=== PATIENT | male | born 1955 | race African-American/Black ===

== ENCOUNTER 2017-02-09 19:41 | Inpatient (IN) | payer OTHER ==
[2017-02-09 20:54] VITALS: BMI 25.4
--- NOTE | 2017-02-09 21:26 | HP ---
CIWA Score - CIWA Score Nausea/Vomitin Muscle Tremors: 4-Moderate,w/Arms Extend Anxiety: 4-Mod. Anxious/Guarded Agitation: 4-Moderately Restless Paroxysmal Sweats: 2 Orientation: 0-Oriented Tacttile Disturbances: 0-None Auditory Disturbances: 0-None Visual Disturbances: 0-None Headache: 2-Mild CIWA-Ar Total Score: 18 Admission ROS BHS - HPI Chief Complaint: WITHDRAWAL SX Allergies/Adverse Reactions: Allergies Allergy/AdvReac Type Severity Reaction Status Date / Time Iodine and Iodide Containing Allergy Verified 02/09/17 22:18 Produc shrimp Allergy Verified 02/09/17 22:18 History of Present Illness: 61 YEARS OLD MALE WITH LONG HISTORY OF ALCOHOL NICOTINE DEPENDENCE HAS HYPERTENSION AND GERD AND DEPRESSION, RECENT RAPID WEIGHT LOSS DRY HEAT IS ADMITTED TO DETOX Exam Limitations: No Limitations - Ebola screening Have you traveled outside of the country in the last 21 days: No Have you had contact with anyone from an Ebola affected area: No Have you been sick,other than usual withdrawal symptoms: No Do you have a fever: No - Review of Systems Constitutional: Chills, Loss of Appetite, Changes in sleep, Unintentional Wgt. Loss, Unexplained wgt Loss EENT: reports: No Symptoms Reported Respiratory: reports: SOB with Exertion, Productive cough Cardiac: reports: No Symptoms Reported GI: reports: Nausea, Poor Appetite, Poor Fluid Intake, Indigestion, Abdominal cramping : reports: Dysuria Musculoskeletal: reports: Joint Pain (LEFT SHOULDER), Muscle Pain (LEFT SHOULDER ) Integumentary: reports: No Symptoms Reported Neuro: reports: Tremors Endocrine: reports: No Symptoms Reported Hematology: reports: No Symptoms Reported Psychiatric: reports: Judgement Intact, Orientated x3, Depressed Other Systems: Reviewed and Negative Patient History - Patient Medical History Hx Anemia: No Hx Asthma: No Hx Chronic Obstructive Pulmonary Disease (COPD): No Hx Cancer: No Hx Cardiac Disorders: No Hx Congestive Heart Failure: No Hx Hypertension: Yes Hx Hypercholesterolemia: No Hx Pacemaker: No HX Cerebrovascular Accident: No Hx Seizures: No Hx Dementia: No Hx Diabetes: No Hx Gastrointestinal Disorders: Yes Hx Liver Disease: No Hx Genitourinary Disorders: No Hx Sexually Transmitted Disorders: No Hx Renal Disease (ESRD): No Hx Thyroid Disease: No Hx Human Immunodeficiency Virus (HIV): No Hx Hepatitis C: No Hx Depression: Yes Hx Suicide Attempt: No Hx Bipolar Disorder: No Hx Schizophrenia: No - Patient Surgical History Past Surgical History: No - PPD History Previous Implant?: Yes Documented Results: Negative w/o proof Implanted On Prior R Admission?: No PPD to be Administered?: Yes - Smoking Cessation Smoking history: Current every day smoker Have you smoked in the past 12 months: Yes Aproximately how many cigarettes per day: 4 Cigars Per Day: 0 Hx Chewing Tobacco Use: No Initiated information on smoking cessation: Yes 'Breaking Loose' booklet given: 02/09/17 - Substance & Tx. History Hx Alcohol Use: Yes Hx Substance Use: No Substance Use Type: Alcohol Hx Substance Use Treatment: No - Substances Abused Alcohol Route: Oral Frequency: Daily Amount used: [id number]+1/2 P[place]OLKA Age of first use: 16 Date of Last Use: 02/09/17 Family Disease History - Family Disease History Family Disease History: CA: Father () Admission Physical Exam BHS - Vital Signs Vital Signs: Vital Signs - 24 hr 02/09/17 20:52 Temperature 97.6 F Pulse Rate 119 H Respiratory 20 Rate Blood Pressure 160/90 - Physical General Appearance: Yes: Appropriately Dressed, Moderate Distress, Alcohol on Breath, Thin, Tremorous, Irritable, Sweating, Anxious HEENTM: Yes: Hearing grossly Normal, Normal ENT Inspection, Normocephalic, Normal Voice Respiratory: Yes: Chest Non-Tender, Lungs Clear, Normal Breath Sounds, No Respiratory Distress, No Accessory Muscle Use Neck: Yes: Supple, Trachea in good position Breast: Yes: Breasts Symetrical Cardiology: Yes: Regular Rhythm, S1, S2, Tachycardia Abdominal: Yes: Non Tender, Soft Genitourinary: Yes: Within Normal Limits Back: Yes: Normal Inspection Musculoskeletal: Yes: full range of Motion, Gait Steady, Joint Stiffness (LEFT SHOULDER), Muscle Pain Extremities: Yes: Normal Inspection, Normal Range of Motion, Non-Tender, Tremors Neurological: Yes: Fully Oriented, Alert, Motor Strength 5/5, Normal Response, Depressed Affect Integumentary: Yes: Warm Lymphatic: Yes: Within Normal Limits - Diagnostic (1) Alcohol dependence with uncomplicated withdrawal Current Visit: Yes Status: Acute (2) Hypertension Current Visit: Yes Status: Acute Qualifiers: Hypertension type: essential hypertension Qualified Code(s): I10 - Essential (primary) hypertension (3) Weight loss Current Visit: Yes Status: Acute (4) BPH (benign prostatic hyperplasia) Current Visit: Yes Status: Acute Qualifiers: Prostatic enlargement morphology: non-nodular Lower urinary tract symptom presence: symptoms absent Qualified Code(s): N40.0 - Benign prostatic hyperplasia without lower urinary tract symptoms (5) Nicotine dependence Current Visit: Yes Status: Acute Qualifiers: Nicotine product type: cigarettes Substance use status: in withdrawal Qualified Code(s): F17.213 - Nicotine dependence, cigarettes, with withdrawal (6) Depression (emotion) Current Visit: Yes Status: Acute Qualifiers: Depression Type: dysthymia Qualified Code(s): F34.1 - Dysthymic disorder Cleared for Admission S - Detox or Rehab [facility] Level of Care: Medically Managed Detox Regimen/Protocol: Librium [facility] Breath Alcohol Content Breath Alcohol Content: 0.062 Urine Drug Screen - Results Drug Screen Negative: Yes
[2017-02-09] MEDS ORDERED: NICOTINE 14 MG/24 HOURS TOPICAL PATCH TD PRN (21:40)
[2017-02-09] MEDS ORDERED: MAG HYDROX/AL HYDROX/SIMETH 30 ML UNIT-DOSE CUP PO PRN (21:40)
[2017-02-09] MEDS ORDERED: chlordiazePOXIDE HCL 25 MG CAPSULE PO PRN (21:40)
[2017-02-09] MEDS ORDERED: chlordiazePOXIDE HCL 25 MG CAPSULE PO ONE (21:40)
[2017-02-09] MEDS ORDERED: ACETAMINOPHEN 325 MG TABLET (FP) PO PRN (21:40)
[2017-02-09] MEDS ORDERED: MAGNESIUM HYDROX 2400MG/30ML ORAL SUSPENSION 30 ML CUP PO PRN (21:40)
[2017-02-09] MEDS ORDERED: guaiFENesin/D-METHORPHAN HB 10 ML UNIT-DOSE CUPS PO PRN (21:40)
[2017-02-09] MEDS ORDERED: MENTHOL/PHENOL 1 EACH UD MM PRN (21:40)
[2017-02-09] MEDS ORDERED: NICOTINE POLACRILEX 2 MG GUM BC PRN (21:40)
[2017-02-09] MEDS ORDERED: hydrOXYzine PAMOATE 50 MG CAPSULE (FP) PO PRN (21:40)
[2017-02-09] MEDS ORDERED: P-EPHED 60MG/TRIPROLIDI 2.5MG TABLET PO PRN (21:40)
[2017-02-09] MEDS ORDERED: LOPERAMIDE HCL 2 MG CAPSULE PO PRN (21:40)
[2017-02-09] MEDS ORDERED: MAGNESIUM CITRATE 300 ML BOTTLE PO PRN (21:40)
[2017-02-09] MEDS ORDERED: cloNIDine HCL 0.1 MG TABLET PO PRN (21:47)
[2017-02-09 23:39] LABS: URINE APPEARANCE CLEAR; URINE BILIRUBIN NEGATIVE (NEGATIVE); URINE BLOOD NEGATIVE (NEGATIVE); URINE COLOR YELLOW; URINE GLUCOSE (UA) NEGATIVE (NEGATIVE); URINE KETONE TRACE (NEGATIVE); URINE LEUK ESTERASE NEGATIVE (NEGATIVE); URINE NITRITE NEGATIVE (NEGATIVE); URINE PROTEIN NEGATIVE (NEGATIVE); URINE UROBILINOGEN NEGATIVE E.U./dl (0.2-1.0)
[2017-02-09] MEDS: RANITIDINE HCL 150 MG TABLET (FP) PO SCH (23:57)
[2017-02-09] MEDS: chlordiazePOXIDE HCL 25 MG CAPSULE PO SCH (23:58)
[2017-02-09] MEDS: amLODIPine BESYLATE 5 MG TABLET (FP) PO SCH (23:58)
[2017-02-09] MEDS: CYCLOBENZAPRINE HCL 10 MG TABLET (FP) PO SCH (23:58)
[2017-02-10] MEDS: METHYL SALICYLATE/MENTHOL OINT 30 GM TUBE TP SCH ×3 (00:06→22:16)
[2017-02-10] MEDS: THIAMINE HCL 100 MG TABLET (FP) PO SCH ×2 (00:07→22:16)
[2017-02-10] MEDS: CYCLOBENZAPRINE HCL 10 MG TABLET (FP) PO SCH (05:37)
[2017-02-10] MEDS: chlordiazePOXIDE HCL 25 MG CAPSULE PO SCH ×4 (05:37→22:16)
[2017-02-10 10:05] LABS: MCH 38.4 pg (25.7-33.7); MCHC 36.2 g/dl (32.0-35.9); MEAN PLT VOLUME 7.6 fl (7.5-11.1); PLATELET COUNT 168 K/MM3 (134-434); RDW 12.2 % (11.9-15.9); WHITE BLOOD COUNT 6.2 K/mm3 (4.0-10.0)
--- NOTE | 2017-02-10 10:05 | PN ---
S CIWA - CIWA Score Nausea/Vomitin-No Nausea/No Vomiting Muscle Tremors: 3 Anxiety: 3 Agitation: 4-Moderately Restless Paroxysmal Sweats: 3 Orientation: 0-Oriented Tacttile Disturbances: 0-None Auditory Disturbances: 0-None Visual Disturbances: 0-None Headache: 1-Very Mild CIWA-Ar Total Score: 14 BHS Progress Note (SOAP) Subjective: agitation anxiety sweats chills body aches left should pain Objective: 02/10/17 10:04 Vital Signs Temperature 97.2 F L 02/10/17 06:26 Pulse Rate 75 02/10/17 06:26 Respiratory Rate 18 02/10/17 06:26 Blood Pressure 121/74 02/10/17 06:26 O2 Sat by Pulse Oximetry (%) Laboratory Tests 02/09/17 23:00 Urine Color Yellow Urine Appearance Clear Urine pH 5.0 Ur Specific [place] 1.021 Urine Protein Negative Urine Glucose (UA) Negative Urine Ketones Trace H Urine Blood Negative Urine Nitrite Negative Urine Bilirubin Negative Urine Urobilinogen Negative Ur Leukocyte Esterase Negative labs pending awake/alert lying in bed no acute distress Assessment: 02/10/17 10:04 withdrawal sx Plan: continue detox increase fluids lidocaine patch
[2017-02-10 10:33] LABS: ALK PHOS 94 U/L (45-117); ANION GAP 13 (8-16); BILIRUBIN,TOTAL 1.6 mg/dL (0.2-1.0); CALCIUM 7.4 mg/dL (8.5-10.1); CO2 25 mmol/L (21-32); COCKROFT - GAULT 63; CREATININE 1.2 mg/dL (0.7-1.3); GLUCOSE,RANDOM 140 mg/dL (74-106); THYROID STIMULATING HORMONE 1.41 uIU/ml (0.358-3.74)
[2017-02-10] MEDS: TAMSULOSIN HCL 0.4 MG CAP.ER.24H (FP) PO SCH (10:36)
[2017-02-10] MEDS: RANITIDINE HCL 150 MG TABLET (FP) PO SCH ×2 (10:37→22:16)
[2017-02-10] MEDS: amLODIPine BESYLATE 5 MG TABLET (FP) PO SCH (10:38)
[2017-02-10] MEDS: LIDOCAINE 5% TOPICAL PATCH TP SCH (10:38)
[2017-02-10] MEDS: PRENATAL VITAMINS W/ FOLIC ACID TABLET (FP) PO SCH (10:39)
[2017-02-10 10:45] LABS: HIV 1 & 2 AB NEGATIVE; HIV 1 AGp24 NEGATIVE
--- NOTE | 2017-02-10 16:26 | EKG ---
Test Reason : Blood Pressure : / mmHG Vent. Rate : 102 BPM Atrial Rate : 102 BPM P-R Int : 126 ms QRS Dur : 076 ms QT Int : 328 ms P-R-T Axes : 068 -20 005 degrees QTc Int : 427 ms POOR DATA QUALITY, INTERPRETATION MAY BE ADVERSELY AFFECTED SINUS TACHYCARDIA OTHERWISE NORMAL ECG NO PREVIOUS ECGS AVAILABLE Confirmed by [place] RIOS MD ([id number]) on 02/10/2017 4:26:28 PM Referred By: Confirmed By:NY RIOS MD
--- NOTE | 2017-02-10 17:15 | CONSULT ---
[facility] Psychiatric Consult - Data Date of interview: 02/10/17 Admission source: [facility] Identifying data: First admission to [facility] for this 61 y/o AA male seeking detox treatment for alcohol dependence.Patient is single,a father of one, domiciled,unemployed and deprived of any means of income. Substance Abuse History: - Smoking Cessation. Smoking history: Current every day smoker. Have you smoked in the past 12 months: Yes. Aproximately how many cigarettes per day: 4. Cigars Per Day: 0. Hx Chewing Tobacco Use: No. Initiated information on smoking cessation: Yes. 'Breaking Loose' booklet given : 02/09/17. - Substance & Tx. History. Hx Alcohol Use: Yes. Hx Substance Use : No. Substance Use Type: Alcohol. Hx Substance Use Treatment: No. - Substances Abused. Alcohol. Route: Oral. Frequency: Daily. Amount used: [id number]+1/2 P[place] VOLKA. Age of first use: 16. Date of Last Use: 02/09/17. Confirmed by patient. Medical History: GERD,hypertension and BPH (benign prostatic hypertrophy). Psychiatric History: Patient denies. Physical/Sexual Abuse/Trauma History: Patient denies. Additional Comment: Drug Screen Negative: Yes . Noted. Mental Status Exam - Mental Status Exam Alert and Oriented to: Time, Place, Person Cognitive Function: Grossly Intact Patient Appearance: Well Groomed Mood: Withdrawn Affect: Constricted Patient Behavior: Sedated, Fatigued, Cooperative Speech Pattern: Delayed, Slurred Voice Loudness: Moderately Soft/Quiet Thought Process: Disorganized Thought Disorder: Not Present Hallucinations: Denies Suicidal Ideation: Denies Homicidal Ideation: Denies Insight/Judgement: Poor Sleep: Fair Muscle strength/Tone: Normal (no complaint of weakness) Gait/Station: Normal Psychiatric Findings - Problem List ([place] 1, 2,3) (1) Alcohol dependence with uncomplicated withdrawal Current Visit: Yes Status: Acute (2) Nicotine dependence Current Visit: Yes Status: Acute Qualifiers: Nicotine product type: cigarettes Substance use status: in withdrawal Qualified Code(s): F17.213 - Nicotine dependence, cigarettes, with withdrawal (3) BPH (benign prostatic hyperplasia) Current Visit: Yes Status: Chronic Qualifiers: Prostatic enlargement morphology: non-nodular Lower urinary tract symptom presence: symptoms absent Qualified Code(s): N40.0 - Benign prostatic hyperplasia without lower urinary tract symptoms (4) Hypertension Current Visit: Yes Status: Chronic Qualifiers: Hypertension type: essential hypertension Qualified Code(s): I10 - Essential (primary) hypertension (5) Weight loss Current Visit: Yes Status: Chronic - Initial Treatment Plan Initial Treatment Plan: Psychoeducation.Detoxification.Observation.
[2017-02-10] MEDS: diphenhydrAMINE HCL 50 MG CAPSULE PO PRN (22:16)
[2017-02-11] MEDS: chlordiazePOXIDE HCL 25 MG CAPSULE PO SCH ×3 (05:19→17:39)
[2017-02-11] MEDS: PRENATAL VITAMINS W/ FOLIC ACID TABLET (FP) PO SCH (10:07)
[2017-02-11] MEDS: RANITIDINE HCL 150 MG TABLET (FP) PO SCH ×2 (10:07→22:17)
[2017-02-11] MEDS: TAMSULOSIN HCL 0.4 MG CAP.ER.24H (FP) PO SCH (10:07)
[2017-02-11] MEDS: amLODIPine BESYLATE 5 MG TABLET (FP) PO SCH (10:07)
[2017-02-11] MEDS: LIDOCAINE 5% TOPICAL PATCH TP SCH (10:08)
[2017-02-11] MEDS: METHYL SALICYLATE/MENTHOL OINT 30 GM TUBE TP SCH ×2 (10:08→22:19)
--- NOTE | 2017-02-11 10:51 | PN ---
[facility] CIWA - CIWA Score Nausea/Vomitin-No Nausea/No Vomiting Muscle Tremors: 3 Anxiety: 3 Agitation: 3 Paroxysmal Sweats: 3 Orientation: 0-Oriented Tacttile Disturbances: 0-None Auditory Disturbances: 0-None Visual Disturbances: 0-None Headache: 0-None Present CIWA-Ar Total Score: 12 S Progress Note (SOAP) Subjective: chills sweats little shakes shoulder pain Objective: 02/11/17 10:48 Vital Signs Temperature 96.4 F L 02/11/17 10:09 Pulse Rate 80 02/11/17 10:09 Respiratory Rate 16 02/11/17 10:09 Blood Pressure 106/70 02/11/17 10:09 O2 Sat by Pulse Oximetry (%) Laboratory Tests 02/09/17 02/09/17 02/10/17 07:00 23:00 07:00 WBC 6.2 RBC 3.91 L Hgb 15.0 Hct 41.5 MCV 106.0 H MCHC 36.2 H RDW 12.2 Plt Count 168 MPV 7.6 RBC Morphology Appears normal Morphology Comment Slide scanned Sodium Potassium Chloride Carbon Dioxide Anion Gap BUN Creatinine Creat Clearance w eGFR Random Glucose Calcium Total Bilirubin AST ALT Alkaline Phosphatase Total Protein Albumin TSH Urine Color Yellow Urine Appearance Clear Urine pH 5.0 Ur Specific [place] 1.021 Urine Protein Negative Urine Glucose (UA) Negative Urine Ketones Trace H Urine Blood Negative Urine Nitrite Negative Urine Bilirubin Negative Urine Urobilinogen Negative Ur Leukocyte Esterase Negative RPR Titer Hepatitis C Antibody <0.1 HIV 1&2 Antibody Screen HIV P24 Antigen 02/10/17 02/10/17 02/10/17 07:00 07:00 07:00 WBC RBC Hgb Hct MCV MCHC RDW Plt Count MPV RBC Morphology Morphology Comment Sodium 134 L Potassium 4.1 Chloride 96 L Carbon Dioxide 25 Anion Gap 13 BUN TNP Creatinine 1.2 Creat Clearance w eGFR > 60 Random Glucose 140 H Calcium 7.4 L Total Bilirubin 1.6 H AST TNP ALT TNP Alkaline Phosphatase 94 Total Protein TNP Albumin 3.0 L TSH 1.41 Urine Color Urine Appearance Urine pH Ur Specific [place] Urine Protein Urine Glucose (UA) Urine Ketones Urine Blood Urine Nitrite Urine Bilirubin Urine Urobilinogen Ur Leukocyte Esterase RPR Titer Nonreactive Hepatitis C Antibody HIV 1&2 Antibody Screen Negative HIV P24 Antigen Negative chemistry was called regarding TNP result for BUN,AST,ALT; TNP means pt blood is too milky high lipase for accurate result, however to repeat labs and if same result pt will then follow up with PMD. awake/alert ambulating no acute distress Assessment: 02/11/17 11:01 withdrawal sx Plan: continue detox increase fluids repeat labs and follow up pending labs
[2017-02-11] MEDS: THIAMINE HCL 100 MG TABLET (FP) PO SCH (22:16)
[2017-02-11] MEDS: diphenhydrAMINE HCL 50 MG CAPSULE PO PRN (22:17)
[2017-02-11] MEDS: chlordiazePOXIDE 5 MG CAPSULE PO SCH (22:17)
[2017-02-12] MEDS: chlordiazePOXIDE 5 MG CAPSULE PO SCH ×3 (05:19→17:11)
[2017-02-12 10:43] LABS: SGOT/AST 64 U/L (15-37); SGPT/ALT 66 U/L (12-78)
[2017-02-12] MEDS: METHYL SALICYLATE/MENTHOL OINT 30 GM TUBE TP SCH ×2 (10:57→22:18)
[2017-02-12] MEDS: TAMSULOSIN HCL 0.4 MG CAP.ER.24H (FP) PO SCH (10:58)
[2017-02-12] MEDS: PRENATAL VITAMINS W/ FOLIC ACID TABLET (FP) PO SCH (10:59)
[2017-02-12] MEDS: amLODIPine BESYLATE 5 MG TABLET (FP) PO SCH (10:59)
[2017-02-12] MEDS: LIDOCAINE 5% TOPICAL PATCH TP SCH (10:59)
[2017-02-12] MEDS: RANITIDINE HCL 150 MG TABLET (FP) PO SCH ×2 (11:00→22:19)
--- NOTE | 2017-02-12 16:27 | PN ---
S Progress Note (SOAP) Subjective: Tremors, body aches, Sweating. Objective: PT. A & O X 2 (DISORIENTED ABOUT DAY / DATE). PT. OBSERVED AMBULATING ON UNIT. 02/12/17 16:25 Vital Signs Temperature 97.1 F L 02/12/17 14:31 Pulse Rate 92 H 02/12/17 14:31 Respiratory Rate 18 02/12/17 14:31 Blood Pressure 149/78 02/12/17 14:31 O2 Sat by Pulse Oximetry (%) Laboratory Last Values WBC 6.2 K/mm3 (4.0-10.0) 02/10/17 07:00 RBC 3.91 M/mm3 (4.00-5.60) L 02/10/17 07:00 Hgb 15.0 GM/dL (11.7-16.9) 02/10/17 07:00 Hct 41.5 % (35.4-49) 02/10/17 07:00 MCV 106.0 fl (80-96) H 02/10/17 07:00 MCHC 36.2 g/dl (32.0-35.9) H 02/10/17 07:00 RDW 12.2 % (11.9-15.9) 02/10/17 07:00 Plt Count 168 K/MM3 (134-434) 02/10/17 07:00 MPV 7.6 fl (7.5-11.1) 02/10/17 07:00 RBC Morphology Appears normal 02/10/17 07:00 Morphology Comment Slide scanned 02/10/17 07:00 Sodium 134 mmol/L (136-145) L 02/10/17 07:00 Potassium 4.1 mmol/L (3.5-5.1) 02/10/17 07:00 Chloride 96 mmol/L (98-107) L 02/10/17 07:00 Carbon Dioxide 25 mmol/L (21-32) 02/10/17 07:00 Anion Gap 13 (8-16) 02/10/17 07:00 BUN 11 mg/dL (7-18) 02/12/17 08:00 Creatinine 1.2 mg/dL (0.7-1.3) 02/10/17 07:00 Creat Clearance w eGFR > 60 (>60) 02/10/17 07:00 Random Glucose 140 mg/dL (74-106) H 02/10/17 07:00 Calcium 7.4 mg/dL (8.5-10.1) L 02/10/17 07:00 Total Bilirubin 1.6 mg/dL (0.2-1.0) H 02/10/17 07:00 AST 64 U/L (15-37) H 02/12/17 08:00 ALT 66 U/L (12-78) 02/12/17 08:00 Alkaline Phosphatase 94 U/L (45-117) 02/10/17 07:00 Total Protein TNP 02/10/17 07:00 Albumin 3.0 g/dl (3.4-5.0) L 02/10/17 07:00 TSH 1.41 uIU/ml (0.358-3.74) 02/10/17 07:00 Urine Color Yellow 02/09/17 23:00 Urine Appearance Clear 02/09/17 23:00 Urine pH 5.0 (5.0-8.0) 02/09/17 23:00 Ur Specific [place] 1.021 (1.001-1.035) 02/09/17 23:00 Urine Protein Negative (NEGATIVE) 02/09/17 23:00 Urine Glucose (UA) Negative (NEGATIVE) 02/09/17 23:00 Urine Ketones Trace (NEGATIVE) H 02/09/17 23:00 Urine Blood Negative (NEGATIVE) 02/09/17 23:00 Urine Nitrite Negative (NEGATIVE) 02/09/17 23:00 Urine Bilirubin Negative (NEGATIVE) 02/09/17 23:00 Urine Urobilinogen Negative E.U./dl (0.2-1.0) 02/09/17 23:00 Ur Leukocyte Esterase Negative (NEGATIVE) 02/09/17 23:00 RPR Titer Nonreactive (NONREACTIVE) 02/10/17 07:00 Hepatitis C Antibody <0.1 s/co ratio (0.0-0.9) 02/09/17 07:00 HIV 1&2 Antibody Screen Negative 02/10/17 07:00 HIV P24 Antigen Negative 02/10/17 07:00 LABS NOTED. Assessment: 02/12/17 16:27 WITHDRAWAL SYMPTOMS. Plan: CONTINUE DETOX. ADVISED PATIENT TO FOLLOW-UP WITH [facility] / REHAB MEDICAL PROVIDER AFTER DISCHARGE FROM DETOX FOR GENERAL MEDICAL ASSESSMENT AND FOR ABNORMAL ADMISSION LAB VALUES.
[2017-02-12] MEDS: chlordiazePOXIDE HCL 10 MG CAPSULE PO SCH (22:18)
[2017-02-12] MEDS: THIAMINE HCL 100 MG TABLET (FP) PO SCH (22:19)
[2017-02-12] MEDS: diphenhydrAMINE HCL 50 MG CAPSULE PO PRN (22:20)
[2017-02-13] MEDS: chlordiazePOXIDE HCL 10 MG CAPSULE PO SCH (05:31)
[2017-02-13 06:42] VITALS: BP 135/68; PULSE 70; TEMP 97.7
--- NOTE | 2017-02-13 13:21 | DS ---
[facility] Detox Discharge Summary Admission Date: 02/09/17 Discharge Date: 02/13/17 - History Present History: Alcohol Dependence Pertinent Past History: HTN GERD BPH - Physical Exam Results Vital Signs: Vital Signs Temperature 97.7 F 02/13/17 06:00 Pulse Rate 70 02/13/17 06:00 Respiratory Rate 18 02/13/17 06:00 Blood Pressure 135/68 02/13/17 06:00 O2 Sat by Pulse Oximetry (%) Pertinent Admission Physical Exam Findings: Withdrawal symptoms Laboratory Tests 02/09/17 02/09/17 02/10/17 07:00 23:00 07:00 WBC 6.2 RBC 3.91 L Hgb 15.0 Hct 41.5 MCV 106.0 H MCHC 36.2 H RDW 12.2 Plt Count 168 MPV 7.6 RBC Morphology Appears normal Morphology Comment Slide scanned Sodium Potassium Chloride Carbon Dioxide Anion Gap BUN Creatinine Creat Clearance w eGFR Random Glucose Calcium Total Bilirubin AST ALT Alkaline Phosphatase Total Protein Albumin TSH Urine Color Yellow Urine Appearance Clear Urine pH 5.0 Ur Specific [place] 1.021 Urine Protein Negative Urine Glucose (UA) Negative Urine Ketones Trace H Urine Blood Negative Urine Nitrite Negative Urine Bilirubin Negative Urine Urobilinogen Negative Ur Leukocyte Esterase Negative RPR Titer Hepatitis C Antibody <0.1 HIV 1&2 Antibody Screen HIV P24 Antigen 02/10/17 02/10/17 02/10/17 07:00 07:00 07:00 WBC RBC Hgb Hct MCV MCHC RDW Plt Count MPV RBC Morphology Morphology Comment Sodium 134 L Potassium 4.1 Chloride 96 L Carbon Dioxide 25 Anion Gap 13 BUN TNP Creatinine 1.2 Creat Clearance w eGFR > 60 Random Glucose 140 H Calcium 7.4 L Total Bilirubin 1.6 H AST TNP ALT TNP Alkaline Phosphatase 94 Total Protein TNP Albumin 3.0 L TSH 1.41 Urine Color Urine Appearance Urine pH Ur Specific [place] Urine Protein Urine Glucose (UA) Urine Ketones Urine Blood Urine Nitrite Urine Bilirubin Urine Urobilinogen Ur Leukocyte Esterase RPR Titer Nonreactive Hepatitis C Antibody HIV 1&2 Antibody Screen Negative HIV P24 Antigen Negative 02/12/17 08:00 WBC RBC Hgb Hct MCV MCHC RDW Plt Count MPV RBC Morphology Morphology Comment Sodium Potassium Chloride Carbon Dioxide Anion Gap BUN 11 Creatinine Creat Clearance w eGFR Random Glucose Calcium Total Bilirubin AST 64 H ALT 66 Alkaline Phosphatase Total Protein Albumin TSH Urine Color Urine Appearance Urine pH Ur Specific [place] Urine Protein Urine Glucose (UA) Urine Ketones Urine Blood Urine Nitrite Urine Bilirubin Urine Urobilinogen Ur Leukocyte Esterase RPR Titer Hepatitis C Antibody HIV 1&2 Antibody Screen HIV P24 Antigen Labs noted - Treatment Hospital Course: Detox Protocol Followed, Detoxed Safely, Responded well, Discharged Condition Good - Medication Discharge Medications: Ambulatory Orders Tamsulosin HCl [Flomax] 1 cap PO DAILY 02/09/17 - Diagnosis (1) Alcohol dependence with uncomplicated withdrawal Status: Acute (2) Depression (emotion) Status: Chronic Qualifiers: Depression Type: dysthymia Qualified Code(s): F34.1 - Dysthymic disorder (3) Nicotine dependence Status: Chronic Qualifiers: Nicotine product type: cigarettes Substance use status: in withdrawal Qualified Code(s): F17.213 - Nicotine dependence, cigarettes, with withdrawal (4) BPH (benign prostatic hyperplasia) Status: Chronic Qualifiers: Prostatic enlargement morphology: non-nodular Lower urinary tract symptom presence: symptoms absent Qualified Code(s): N40.0 - Benign prostatic hyperplasia without lower urinary tract symptoms (5) Hypertension Status: Chronic Qualifiers: Hypertension type: essential hypertension Qualified Code(s): I10 - Essential (primary) hypertension (6) GERD (gastroesophageal reflux disease) Status: Chronic - AMA Did Patient Leave Against Medical Advice: No
== END 2017-02-13 09:47 | disposition home or self-care (01) | DRG 775 ==
LOC: YASAS 19:41 → Y6N 22:28
PROVIDERS: ADMIT Internal Medicine Addiction Medicine; ATTEND Internal Medicine Addiction Medicine
PROC: HZ2ZZZZ Detoxification Services for Substance Abuse Treatment (ICD-10-PCS; principal; 2017-02-13)
DX: F10.230 Alcohol dependence with withdrawal, uncomplicated (principal); F17.213 Nicotine dependence, cigarettes, with withdrawal; F34.1 Dysthymic disorder; I10 Essential (primary) hypertension; K21.9 Gastro-esophageal reflux disease without esophagitis; N40.0 Benign prostatic hyperplasia without lower urinary tract symptoms; R63.4 Abnormal weight loss; Z68.25 Body mass index [BMI] 25.0-25.9, adult
CPT/HCPCS: 36415; 80053; 81003; 84443; 84450; 84460; 84520; 85027; 86593; 87389; 93005; 93010

== ENCOUNTER 2017-10-27 17:56 | Inpatient (IN) | payer OTHER ==
[2017-10-27 18:46] VITALS: BMI 25.0
--- NOTE | 2017-10-27 23:06 | HP ---
COWS - Scale Resting Pulse: 1= ND 81-100 Sweatin=Flushed/Facial Moisture Restless Observation: 1= Difficult to Sit Still Pupil Size: 1= Pupils >than Normal Bone or Joint Aches: 2= Severe Diffuse Aches Runny Nose/ Eye Tearin= None GI Upset > 30mins: 1= Stomach Cramp Tremor Observation: 4= Gross Tremor/Twitching Yawning Observation: 0= None Anxiety or Irritability: 4=Extreme Anxiety Goose Flesh Skin: 0=Smooth Skin COWS Score: 16 CIWA Score - CIWA Score Nausea/Vomitin-No Nausea/No Vomiting Muscle Tremors: 4-Moderate,w/Arms Extend Anxiety: 4-Mod. Anxious/Guarded Agitation: 4-Moderately Restless Paroxysmal Sweats: 2 Orientation: 0-Oriented Tacttile Disturbances: 0-None Auditory Disturbances: 0-None Visual Disturbances: 0-None Headache: 3-Moderate CIWA-Ar Total Score: 17 Admission ROS BHS - HPI Chief Complaint: Alcohol and cocaine withdrawal symptoms Allergies/Adverse Reactions: Allergies Allergy/AdvReac Type Severity Reaction Status Date / Time Iodine and Iodide Containing Allergy Severe Swelling Verified 10/27/17 21:54 Produc shrimp Allergy Severe Swelling Verified 10/27/17 21:54 History of Present Illness: 61 years old male with a long history of alcohol and cocaine dependence is admitted to detox. Patient has been in previous detox and reports a year of sobriety. He has medical history of HTN, GERD, BPH, nicotine dependence and depression. He denies suicidal ideation at this time. Exam Limitations: No Limitations - Ebola screening Have you traveled outside of the country in the last 21 days: No Have you had contact with anyone from an Ebola affected area: No Have you been sick,other than usual withdrawal symptoms: No Do you have a fever: No - Review of Systems Constitutional: Chills, Diaphoresis, Loss of Appetite, Malaise, Night Sweats, Changes in sleep, Weakness, Unexplained wgt Loss EENT: reports: Sinus Pressure, Other (use glasses for reading) Respiratory: reports: No Symptoms reported, Cough (whitish phlegm) Cardiac: reports: No Symptoms Reported GI: reports: Poor Appetite, Poor Fluid Intake, Abdominal cramping : reports: No Symptoms Reported Musculoskeletal: reports: Back Pain, Joint Pain, Muscle Pain, Muscle Weakness Integumentary: reports: Flushing Neuro: reports: Headache, Tingling, Tremors, Weakness Endocrine: reports: Unexplained Weight Loss Hematology: reports: No Symptoms Reported Psychiatric: reports: Orientated x3, Anxious, Depressed Other Systems: Reviewed and Negative Patient History - Patient Medical History Hx Anemia: No Hx Asthma: No Hx Chronic Obstructive Pulmonary Disease (COPD): No Hx Cancer: No Hx Cardiac Disorders: No Hx Congestive Heart Failure: No Hx Hypertension: Yes Hx Hypercholesterolemia: No Hx Pacemaker: No HX Cerebrovascular Accident: No Hx Seizures: No Hx Dementia: No Hx Diabetes: No Hx Gastrointestinal Disorders: Yes (GERD) Hx Liver Disease: No Hx Genitourinary Disorders: No Hx Sexually Transmitted Disorders: No Hx Renal Disease (ESRD): No Hx Thyroid Disease: No Hx Human Immunodeficiency Virus (HIV): No (Negative 2017) Hx Hepatitis C: No Hx Depression: Yes Hx Suicide Attempt: No (Denies suicidal ideation) Hx Bipolar Disorder: No Hx Schizophrenia: No - Patient Surgical History Past Surgical History: No Hx Neurologic Surgery: No Hx Cataract Extraction: No Hx Cardiac Surgery: No Hx Lung Surgery: No Hx Abdominal Surgery: No Hx Appendectomy: No Hx Cholecystectomy: No Hx Genitourinary Surgery: No Hx Orthopedic Surgery: No Anesthesia Reaction: No - PPD History Previous Implant?: Yes Documented Results: Negative w/proof Implanted On Prior [facility] Admission?: Yes Date: 02/11/17 PPD to be Administered?: No - Reproductive History Patient is a Female of Child Bearing Age (11 -55 yrs old): No (MALE) - Smoking Cessation Smoking history: Current every day smoker Have you smoked in the past 12 months: Yes Aproximately how many cigarettes per day: 5 Cigars Per Day: 0 Hx Chewing Tobacco Use: No Initiated information on smoking cessation: Yes 'Breaking Loose' booklet given: 10/27/17 - Substance & Tx. History Hx Alcohol Use: Yes Hx Substance Use: Yes Substance Use Type: Alcohol, Cocaine Hx Substance Use Treatment: Yes ([facility]) - Substances Abused Alcohol Route: Oral Frequency: Daily Amount used: 6 cans Age of first use: 15 Date of Last Use: 10/27/17 Cocaine Route: Smoking Frequency: 1-2 times per week Amount used: $50 Age of first use: 15 Date of Last Use: 10/27/17 Family Disease History - Family Disease History Family Disease History: [place]: Father (LUNG [place]-) Admission Physical Exam [facility] - Vital Signs Vital Signs: Vital Signs - 24 hr 10/27/17 18:43 Temperature 97.7 F Pulse Rate 87 Respiratory 18 Rate Blood Pressure 138/82 - Physical General Appearance: Yes: Moderate Distress, Alcohol on Breath, Tremorous, Irritable, Sweating, Anxious HEENTM: Yes: EOMI, Normal ENT Inspection, AMPARO Respiratory: Yes: Lungs Clear, Normal Breath Sounds, No Respiratory Distress Neck: Yes: No masses,lesions,Nodules, Supple, Trachea in good position Breast: Yes: Breast Exam Deferred Cardiology: Yes: Regular Rhythm, Regular Rate, S1, S2 Abdominal: Yes: Normal Bowel Sounds, Soft Genitourinary: Yes: Within Normal Limits Back: Yes: Within Normal Limits Extremities: Yes: Normal Inspection, Tremors Neurological: Yes: Alert, Normal Mood/Affect, Normal Response Integumentary: Yes: Dry Lymphatic: Yes: Within Normal Limits - Diagnostic (1) Alcohol dependence with uncomplicated withdrawal Current Visit: Yes Status: Chronic (2) BPH (benign prostatic hyperplasia) Current Visit: Yes Status: Chronic Qualifiers: Lower urinary tract symptom presence: symptoms absent (3) Depression (emotion) Current Visit: Yes Status: Chronic Qualifiers: Depression Type: dysthymia Qualified Code(s): F34.1 - Dysthymic disorder (4) GERD (gastroesophageal reflux disease) Current Visit: Yes Status: Chronic (5) Hypertension Current Visit: Yes Status: Chronic Qualifiers: Hypertension type: essential hypertension Qualified Code(s): I10 - Essential (primary) hypertension (6) Nicotine dependence Current Visit: Yes Status: Chronic Qualifiers: Nicotine product type: cigarettes Substance use status: in withdrawal Qualified Code(s): F17.213 - Nicotine dependence, cigarettes, with withdrawal (7) Cocaine dependence, uncomplicated Current Visit: Yes Status: Chronic Cleared for Admission [facility] - Detox or Rehab [facility] Level of Care: Medically Managed Detox Regimen/Protocol: Librium [facility] Breath Alcohol Content Breath Alcohol Content: 0.153 Urine Drug Screen - Results Drug Screen Negative: No Urine Drug Screen Results: FELIPE-Cocaine
[2017-10-27] MEDS ORDERED: IBUPROFEN 400 MG TABLET (FP) PO PRN (23:19)
[2017-10-27] MEDS ORDERED: chlordiazePOXIDE HCL 25 MG CAPSULE PO ONE (23:19)
[2017-10-27] MEDS ORDERED: ACETAMINOPHEN 325 MG TABLET (FP) PO PRN (23:19)
[2017-10-27] MEDS ORDERED: MAG HYDROX/AL HYDROX/SIMETH 30 ML UNIT-DOSE CUP PO PRN (23:19)
[2017-10-27] MEDS ORDERED: chlordiazePOXIDE HCL 25 MG CAPSULE PO PRN (23:19)
[2017-10-27] MEDS ORDERED: MENTHOL/PHENOL 1 EACH UD MM PRN (23:19)
[2017-10-27] MEDS ORDERED: MAGNESIUM HYDROX 2400MG/30ML ORAL SUSPENSION 30 ML CUP PO PRN (23:19)
[2017-10-27] MEDS ORDERED: NICOTINE POLACRILEX 2 MG GUM BC PRN (23:19)
[2017-10-27] MEDS ORDERED: P-EPHED 60MG/TRIPROLIDI 2.5MG TABLET PO PRN (23:19)
[2017-10-27] MEDS ORDERED: guaiFENesin/D-METHORPHAN HB 10 ML UNIT-DOSE CUPS PO PRN (23:19)
[2017-10-27] MEDS ORDERED: MAGNESIUM CITRATE 300 ML BOTTLE PO PRN (23:19)
[2017-10-27] MEDS ORDERED: LOPERAMIDE HCL 2 MG CAPSULE PO PRN (23:19)
[2017-10-28] MEDS ORDERED: chlordiazePOXIDE HCL 25 MG CAPSULE PO SCH ×2 (00:15→05:00)
[2017-10-28] MEDS: chlordiazePOXIDE HCL 25 MG CAPSULE PO SCH ×6 (00:29→22:43)
[2017-10-28 02:01] LABS: URINE APPEARANCE CLEAR; URINE BILIRUBIN NEGATIVE (NEGATIVE); URINE BLOOD NEGATIVE (NEGATIVE); URINE COLOR LTYELLOW; URINE GLUCOSE (UA) NEGATIVE (NEGATIVE); URINE KETONE NEGATIVE (NEGATIVE); URINE LEUK ESTERASE NEGATIVE (NEGATIVE); URINE NITRITE NEGATIVE (NEGATIVE); URINE PROTEIN NEGATIVE (NEGATIVE); URINE UROBILINOGEN NEGATIVE mg/dL (0.2-1.0)
[2017-10-28 10:02] LABS: MCH 34.5 pg (25.7-33.7); MCHC 33.3 g/dl (32.0-35.9); MEAN CELL VOLUME 103.5 fl (80-96); MEAN PLT VOLUME 7.9 fl (7.5-11.1); PLATELET COUNT 180 K/MM3 (134-434); RDW 11.4 % (11.9-15.9); WHITE BLOOD COUNT 4.7 K/mm3 (4.0-10.0)
[2017-10-28 10:22] LABS: ALBUMIN 3.1 g/dl (3.4-5.0); ALK PHOS 113 U/L (45-117); ANION GAP 8 (8-16); BILIRUBIN,TOTAL 0.5 mg/dL (0.2-1.0); CALCIUM 8.2 mg/dL (8.5-10.1); CO2 27 mmol/L (21-32); CREATININE 0.9 mg/dL (0.7-1.3); GLUCOSE,RANDOM 89 mg/dL (74-106); SGOT/AST 28 U/L (15-37); SGPT/ALT 25 U/L (12-78); TOT PROT 6.7 g/dl (6.4-8.2)
[2017-10-28] MEDS: TAMSULOSIN HCL 0.4 MG CAP.ER.24H (FP) PO SCH (10:31)
[2017-10-28] MEDS: PRENATAL VITAMINS W/ FOLIC ACID TABLET (FP) PO SCH (10:31)
[2017-10-28 11:06] LABS: URINE LEUK ESTERASE Negative (NEGATIVE)
[2017-10-28 11:42] LABS: HIV 1 & 2 AB NEGATIVE; HIV 1 AGp24 NEGATIVE
--- NOTE | 2017-10-28 12:01 | CONSULT ---
[facility] Psychiatric Consult - Data Date of interview: 10/28/17 Admission source: [facility] Identifying data: Pt. is a 61 year old male, single, father of one daughter, and currently unemployed. Pt. admitted to for alcohol and cocaine dependence. Substance Abuse History: Smoking Cessation. Smoking history: Current every day smoker. Have you smoked in the past 12 months: Yes. Aproximately how many cigarettes per day: 5. Cigars Per Day: 0. Hx Chewing Tobacco Use: No. Initiated information on smoking cessation: Yes. 'Breaking Loose' booklet given : 10/27/17. - Substance & Tx. History. Hx Alcohol Use: Yes. Hx Substance Use : Yes. Substance Use Type: Alcohol, Cocaine. Hx Substance Use Treatment: Yes ( [facility]). Alcohol Route: Oral Frequency: Daily. Amount used: 6 cans Age of first use: 15. Date of Last Use: 10/27/17. Cocaine: Route: Smoking Frequency: 1-2 times per week. Amount used: $50 Age of first use: 15. Date of Last Use: 10/27/17 Medical History: Hypertension, GERD Psychiatric History: Pt. denies. Physical/Sexual Abuse/Trauma History: Denies. Additional Comment: Urine Drug Screen Results: FELIPE-Cocaine Mental Status Exam - Mental Status Exam Alert and Oriented to: Time, Place, Person Cognitive Function: Grossly Intact Patient Appearance: Well Groomed Mood: Withdrawn Affect: Mood Congruent Patient Behavior: Sedated (Pt. sedated but able to answer questions.), Fatigued Speech Pattern: Delayed, Slurred Voice Loudness: Moderately Soft/Quiet Thought Process: Goal Oriented Thought Disorder: Not Present Hallucinations: Denies Suicidal Ideation: Denies Homicidal Ideation: Denies Insight/Judgement: Poor Sleep: Fair Appetite: Fair Muscle strength/Tone: Normal Gait/Station: Normal Psychiatric Findings - Problem List ([place] 1, 2,3) (1) Alcohol dependence with uncomplicated withdrawal Current Visit: Yes Status: Chronic (2) Cocaine dependence, uncomplicated Current Visit: Yes Status: Chronic (3) Nicotine dependence Current Visit: Yes Status: Chronic Qualifiers: Nicotine product type: cigarettes Substance use status: in withdrawal Qualified Code(s): F17.213 - Nicotine dependence, cigarettes, with withdrawal - Initial Treatment Plan Initial Treatment Plan: Psychoeducation provided. Detox in progress. Will continue to monitor.
--- NOTE | 2017-10-28 13:45 | PN ---
[facility] CIWA - CIWA Score Nausea/Vomitin-No Nausea/No Vomiting Muscle Tremors: None Anxiety: 4-Mod. Anxious/Guarded Agitation: 2 Paroxysmal Sweats: 3 Orientation: 0-Oriented Tacttile Disturbances: 3-Moderate Itch/Numb/Burn Auditory Disturbances: 2-Mild Harshness/Frighten Visual Disturbances: 3-Moderate Sensitivity Headache: 0-None Present CIWA-Ar Total Score: 17 S Progress Note (SOAP) Subjective: Interrupted Sleep, Sweating, Fatigue, Body Aches. Objective: PT. A & O X 3. NO ACUTE DISTRESS. PT. DENIES CHEST PAIN. 10/28/17 13:42 Vital Signs Temperature 98.2 F 10/28/17 09:40 Pulse Rate 80 10/28/17 09:40 Respiratory Rate 18 10/28/17 09:40 Blood Pressure 159/95 10/28/17 09:40 O2 Sat by Pulse Oximetry (%) Laboratory Tests 10/27/17 10/28/17 10/28/17 23:33 07:00 07:00 WBC 4.7 RBC 4.16 Hgb 14.3 Hct 43.0 MCV 103.5 H MCH 34.5 H D MCHC 33.3 RDW 11.4 L Plt Count 180 MPV 7.9 Sodium 140 Potassium 4.0 Chloride 105 Carbon Dioxide 27 Anion Gap 8 BUN 16 D Creatinine 0.9 D Creat Clearance w eGFR > 60 Random Glucose 89 D Calcium 8.2 L Total Bilirubin 0.5 D AST 28 D ALT 25 D Alkaline Phosphatase 113 D Total Protein 6.7 Albumin 3.1 L Urine Color Ltyellow Urine Appearance Clear Urine pH 5.0 Ur Specific [place] 1.012 Urine Protein Negative Urine Glucose (UA) Negative Urine Ketones Negative Urine Blood Negative Urine Nitrite Negative Urine Bilirubin Negative Urine Urobilinogen Negative Ur Leukocyte Esterase Negative RPR Titer HIV 1&2 Antibody Screen HIV P24 Antigen 10/28/17 10/28/17 07:00 09:00 WBC RBC Hgb Hct MCV MCH MCHC RDW Plt Count MPV Sodium Potassium Chloride Carbon Dioxide Anion Gap BUN Creatinine Creat Clearance w eGFR Random Glucose Calcium Total Bilirubin AST ALT Alkaline Phosphatase Total Protein Albumin Urine Color Urine Appearance Urine pH Ur Specific [place] Urine Protein Urine Glucose (UA) Urine Ketones Urine Blood Urine Nitrite Urine Bilirubin Urine Urobilinogen Ur Leukocyte Esterase RPR Titer Nonreactive HIV 1&2 Antibody Screen Negative HIV P24 Antigen Negative LABS NOTED. HCV AB RESULT PENDING. 10/28/17 13:44 Assessment: 10/28/17 13:43 WITHDRAWAL SYMPTOMS. Plan: CONTINUE DETOX. INCREASE DAILY PO FLUID INTAKE. ENCOURAGE AMBULATION.
--- NOTE | 2017-10-28 13:55 | EKG ---
Test Reason : Blood Pressure : / mmHG Vent. Rate : 068 BPM Atrial Rate : 068 BPM P-R Int : 132 ms QRS Dur : 082 ms QT Int : 402 ms P-R-T Axes : 072 -28 -34 degrees QTc Int : 427 ms NORMAL SINUS RHYTHM MODERATE VOLTAGE CRITERIA FOR LVH, MAY BE NORMAL VARIANT T WAVE ABNORMALITY, CONSIDER INFERIOR ISCHEMIA ABNORMAL ECG WHEN COMPARED WITH ECG OF 28-OCT-2017 01:37, NO SIGNIFICANT CHANGE WAS FOUND Confirmed by REUBEN DEMARCO MD ([id number]) on 10/28/2017 1:54:50 PM Referred By: Confirmed By:REUBEN DEMARCO MD
--- NOTE | 2017-10-28 13:57 | EKG ---
Test Reason : Blood Pressure : / mmHG Vent. Rate : 083 BPM Atrial Rate : 083 BPM P-R Int : 134 ms QRS Dur : 084 ms QT Int : 400 ms P-R-T Axes : 074 -10 -42 degrees QTc Int : 470 ms NORMAL SINUS RHYTHM T WAVE ABNORMALITY, CONSIDER INFERIOR ISCHEMIA PROLONGED QT ABNORMAL ECG WHEN COMPARED WITH ECG OF 09-FEB-2017 23:10, NO SIGNIFICANT CHANGE WAS FOUND Confirmed by REUBEN DEMARCO MD ([id number]) on 10/28/2017 1:57:40 PM Referred By: Confirmed By:REUBEN DEMARCO MD
--- NOTE | 2017-10-28 15:32 | PN ---
BHS Progress Note Note: Amlodipine, 5 mg PO Daily ordered for persistently elevated BP. Edgardo Arevalo [employer]IVER/GUIDE
[2017-10-28] MEDS: amLODIPine BESYLATE 5 MG TABLET (FP) PO SCH (17:46)
[2017-10-28] MEDS: THIAMINE HCL 100 MG TABLET (FP) PO SCH (22:43)
[2017-10-28] MEDS: diphenhydrAMINE HCL 50 MG CAPSULE PO PRN (22:44)
[2017-10-29] MEDS: chlordiazePOXIDE HCL 25 MG CAPSULE PO SCH ×3 (05:51→16:49)
[2017-10-29] MEDS: TAMSULOSIN HCL 0.4 MG CAP.ER.24H (FP) PO SCH (10:28)
[2017-10-29] MEDS: amLODIPine BESYLATE 5 MG TABLET (FP) PO SCH (10:28)
[2017-10-29] MEDS: PRENATAL VITAMINS W/ FOLIC ACID TABLET (FP) PO SCH (10:28)
--- NOTE | 2017-10-29 16:57 | PN ---
[facility] CIWA - CIWA Score Nausea/Vomitin-No Nausea/No Vomiting Muscle Tremors: 4-Moderate,w/Arms Extend Anxiety: 2 Agitation: 2 Paroxysmal Sweats: 3 Orientation: 0-Oriented Tacttile Disturbances: 2-Mild Itch/Numbness/Burn Auditory Disturbances: 0-None Visual Disturbances: 0-None Headache: 3-Moderate CIWA-Ar Total Score: 16 BHS COWS - Scale Resting Pulse: 0= [place] 80 or Below Sweatin= Chills/Flushing Restless Observation: 1= Difficult to Sit Still Pupil Size: 0= Normal to Room Light Bone or Joint Aches: 2= Severe Diffuse Aches Runny Nose/ Eye Tearin= None GI Upset > 30mins: 0= None Tremor Observation of Outstretched Hands: 2= Slight Tremor Visible Yawning Observation: 1= 1-2x During Session Anxiety or Irritability: 2=Irritable/Anxious Goose Flesh Skin: 3=Piloerection COWS Score: 12 S Progress Note (SOAP) Subjective: Tremors, Body Aches, H/A, Sweating, Fatigue. Objective: PT. A & O X 3. NO ACUTE DISTRESS. 10/29/17 16:55 Vital Signs Temperature 97.6 F 10/29/17 11:07 Pulse Rate 70 10/29/17 11:07 Respiratory Rate 18 10/29/17 11:07 Blood Pressure 122/79 10/29/17 11:07 O2 Sat by Pulse Oximetry (%) Laboratory Tests 10/27/17 10/27/17 10/28/17 07:00 23:33 07:00 WBC 4.7 RBC 4.16 Hgb 14.3 Hct 43.0 MCV 103.5 H MCH 34.5 H D MCHC 33.3 RDW 11.4 L Plt Count 180 MPV 7.9 Sodium Potassium Chloride Carbon Dioxide Anion Gap BUN Creatinine Creat Clearance w eGFR Random Glucose Calcium Total Bilirubin AST ALT Alkaline Phosphatase Total Protein Albumin Urine Color Ltyellow Urine Appearance Clear Urine pH 5.0 Ur Specific [place] 1.012 Urine Protein Negative Urine Glucose (UA) Negative Urine Ketones Negative Urine Blood Negative Urine Nitrite Negative Urine Bilirubin Negative Urine Urobilinogen Negative Ur Leukocyte Esterase Negative RPR Titer Hepatitis C Antibody <0.1 HIV 1&2 Antibody Screen HIV P24 Antigen 10/28/17 10/28/17 10/28/17 07:00 07:00 09:00 WBC RBC Hgb Hct MCV MCH MCHC RDW Plt Count MPV Sodium 140 Potassium 4.0 Chloride 105 Carbon Dioxide 27 Anion Gap 8 BUN 16 D Creatinine 0.9 D Creat Clearance w eGFR > 60 Random Glucose 89 D Calcium 8.2 L Total Bilirubin 0.5 D AST 28 D ALT 25 D Alkaline Phosphatase 113 D Total Protein 6.7 Albumin 3.1 L Urine Color Urine Appearance Urine pH Ur Specific [place] Urine Protein Urine Glucose (UA) Urine Ketones Urine Blood Urine Nitrite Urine Bilirubin Urine Urobilinogen Ur Leukocyte Esterase RPR Titer Nonreactive Hepatitis C Antibody HIV 1&2 Antibody Screen Negative HIV P24 Antigen Negative LABS NOTED. Assessment: 10/29/17 16:56 WITHDRAWAL SYMPTOMS. Plan: CONTINUE DETOX. INCREASE DAILY PO FLUID INTAKE.
[2017-10-29] MEDS: chlordiazePOXIDE 5 MG CAPSULE PO SCH (22:24)
[2017-10-29] MEDS: THIAMINE HCL 100 MG TABLET (FP) PO SCH (22:24)
[2017-10-29] MEDS: diphenhydrAMINE HCL 50 MG CAPSULE PO PRN (22:26)
[2017-10-30] MEDS: chlordiazePOXIDE 5 MG CAPSULE PO SCH ×3 (05:44→16:40)
[2017-10-30] MEDS: TAMSULOSIN HCL 0.4 MG CAP.ER.24H (FP) PO SCH (10:23)
[2017-10-30] MEDS: PRENATAL VITAMINS W/ FOLIC ACID TABLET (FP) PO SCH (10:23)
[2017-10-30] MEDS: amLODIPine BESYLATE 5 MG TABLET (FP) PO SCH (10:23)
--- NOTE | 2017-10-30 15:49 | PN ---
BHS Progress Note (SOAP) Subjective: Sweating, tremor, interrupted sleep Objective: 10/30/17 15:47 Last Vital Signs Temp Pulse Resp BP Pulse Ox 97.1 F L 70 18 134/85 10/30/17 14:29 10/30/17 14:29 10/30/17 14:29 10/30/17 14:29 Laboratory Tests 10/27/17 10/27/17 10/28/17 07:00 23:33 07:00 WBC 4.7 RBC 4.16 Hgb 14.3 Hct 43.0 MCV 103.5 H MCH 34.5 H D MCHC 33.3 RDW 11.4 L Plt Count 180 MPV 7.9 Sodium Potassium Chloride Carbon Dioxide Anion Gap BUN Creatinine Creat Clearance w eGFR Random Glucose Calcium Total Bilirubin AST ALT Alkaline Phosphatase Total Protein Albumin Urine Color Ltyellow Urine Appearance Clear Urine pH 5.0 Ur Specific [place] 1.012 Urine Protein Negative Urine Glucose (UA) Negative Urine Ketones Negative Urine Blood Negative Urine Nitrite Negative Urine Bilirubin Negative Urine Urobilinogen Negative Ur Leukocyte Esterase Negative RPR Titer Hepatitis C Antibody <0.1 HIV 1&2 Antibody Screen HIV P24 Antigen 10/28/17 10/28/17 10/28/17 07:00 07:00 09:00 WBC RBC Hgb Hct MCV MCH MCHC RDW Plt Count MPV Sodium 140 Potassium 4.0 Chloride 105 Carbon Dioxide 27 Anion Gap 8 BUN 16 D Creatinine 0.9 D Creat Clearance w eGFR > 60 Random Glucose 89 D Calcium 8.2 L Total Bilirubin 0.5 D AST 28 D ALT 25 D Alkaline Phosphatase 113 D Total Protein 6.7 Albumin 3.1 L Urine Color Urine Appearance Urine pH Ur Specific [place] Urine Protein Urine Glucose (UA) Urine Ketones Urine Blood Urine Nitrite Urine Bilirubin Urine Urobilinogen Ur Leukocyte Esterase RPR Titer Nonreactive Hepatitis C Antibody HIV 1&2 Antibody Screen Negative HIV P24 Antigen Negative Labs noted Assessment: 10/30/17 15:49 Withdrawal symptoms Plan: Continue detox
[2017-10-30] MEDS: chlordiazePOXIDE HCL 10 MG CAPSULE PO SCH (22:28)
[2017-10-30] MEDS: THIAMINE HCL 100 MG TABLET (FP) PO SCH (22:28)
[2017-10-31] MEDS: chlordiazePOXIDE HCL 10 MG CAPSULE PO SCH ×3 (05:57→17:43)
[2017-10-31] MEDS: amLODIPine BESYLATE 5 MG TABLET (FP) PO SCH (10:19)
[2017-10-31] MEDS: PRENATAL VITAMINS W/ FOLIC ACID TABLET (FP) PO SCH (10:19)
[2017-10-31] MEDS: TAMSULOSIN HCL 0.4 MG CAP.ER.24H (FP) PO SCH (11:15)
--- NOTE | 2017-10-31 16:28 | PN ---
BHS Progress Note (SOAP) Subjective: Tremor, chills, interrupted sleep Objective: 10/31/17 16:26 Last Vital Signs Temp Pulse Resp BP Pulse Ox 96.4 F L 80 18 122/75 10/31/17 14:12 10/31/17 14:12 10/31/17 14:12 10/31/17 14:12 Laboratory Tests 10/27/17 10/27/17 10/28/17 07:00 23:33 07:00 WBC 4.7 RBC 4.16 Hgb 14.3 Hct 43.0 MCV 103.5 H MCH 34.5 H D MCHC 33.3 RDW 11.4 L Plt Count 180 MPV 7.9 Sodium Potassium Chloride Carbon Dioxide Anion Gap BUN Creatinine Creat Clearance w eGFR Random Glucose Calcium Total Bilirubin AST ALT Alkaline Phosphatase Total Protein Albumin Urine Color Ltyellow Urine Appearance Clear Urine pH 5.0 Ur Specific [place] 1.012 Urine Protein Negative Urine Glucose (UA) Negative Urine Ketones Negative Urine Blood Negative Urine Nitrite Negative Urine Bilirubin Negative Urine Urobilinogen Negative Ur Leukocyte Esterase Negative RPR Titer Hepatitis C Antibody <0.1 HIV 1&2 Antibody Screen HIV P24 Antigen 10/28/17 10/28/17 10/28/17 07:00 07:00 09:00 WBC RBC Hgb Hct MCV MCH MCHC RDW Plt Count MPV Sodium 140 Potassium 4.0 Chloride 105 Carbon Dioxide 27 Anion Gap 8 BUN 16 D Creatinine 0.9 D Creat Clearance w eGFR > 60 Random Glucose 89 D Calcium 8.2 L Total Bilirubin 0.5 D AST 28 D ALT 25 D Alkaline Phosphatase 113 D Total Protein 6.7 Albumin 3.1 L Urine Color Urine Appearance Urine pH Ur Specific [place] Urine Protein Urine Glucose (UA) Urine Ketones Urine Blood Urine Nitrite Urine Bilirubin Urine Urobilinogen Ur Leukocyte Esterase RPR Titer Nonreactive Hepatitis C Antibody HIV 1&2 Antibody Screen Negative HIV P24 Antigen Negative Labs noted Assessment: 10/31/17 16:27 Withdrawal symptoms Plan: Continue detox Encouraged to drink lots of water for hydration Ambien 5mg PO qhs prn for insomnia
[2017-10-31] MEDS ORDERED: ZOLPIDEM TARTRATE 5 MG TABLET PO PRN (22:00)
[2017-10-31] MEDS: THIAMINE HCL 100 MG TABLET (FP) PO SCH (22:32)
[2017-11-01 06:32] VITALS: BP 124/72; PULSE 66; TEMP 96.3
--- NOTE | 2017-11-01 11:57 | DS ---
[facility] Detox Discharge Summary Admission Date: 10/27/17 Discharge Date: 11/01/17 - History Present History: Alcohol Dependence, Cocaine Dependence Additional Comments: PATIENT GOING HOME. PATIENT ADVISED TO CONSIDER LOCAL 12-STEP / AA/ NA OUTPATIENT SUPPORT GROUP MEETINGS FOR AFTERCARE. PATIENT WAS DISCHARGED FROM DETOX UNIT IN STABLE MEDICAL CONDITION. Pertinent Past History: Depression, Nicotine Dependence, HTN, BPH, GERD. - Physical Exam Results Vital Signs: Vital Signs Temperature 96.3 F L 11/01/17 06:32 Pulse Rate 66 11/01/17 06:32 Respiratory Rate 16 11/01/17 06:32 Blood Pressure 124/72 11/01/17 06:32 O2 Sat by Pulse Oximetry (%) Pertinent Admission Physical Exam Findings: WITHDRAWAL SYMPTOMS. Laboratory Tests 10/27/17 10/27/17 10/28/17 07:00 23:33 07:00 WBC 4.7 RBC 4.16 Hgb 14.3 Hct 43.0 MCV 103.5 H MCH 34.5 H D MCHC 33.3 RDW 11.4 L Plt Count 180 MPV 7.9 Sodium Potassium Chloride Carbon Dioxide Anion Gap BUN Creatinine Creat Clearance w eGFR Random Glucose Calcium Total Bilirubin AST ALT Alkaline Phosphatase Total Protein Albumin Urine Color Ltyellow Urine Appearance Clear Urine pH 5.0 Ur Specific [place] 1.012 Urine Protein Negative Urine Glucose (UA) Negative Urine Ketones Negative Urine Blood Negative Urine Nitrite Negative Urine Bilirubin Negative Urine Urobilinogen Negative Ur Leukocyte Esterase Negative RPR Titer Hepatitis C Antibody <0.1 HIV 1&2 Antibody Screen HIV P24 Antigen 10/28/17 10/28/17 10/28/17 07:00 07:00 09:00 WBC RBC Hgb Hct MCV MCH MCHC RDW Plt Count MPV Sodium 140 Potassium 4.0 Chloride 105 Carbon Dioxide 27 Anion Gap 8 BUN 16 D Creatinine 0.9 D Creat Clearance w eGFR > 60 Random Glucose 89 D Calcium 8.2 L Total Bilirubin 0.5 D AST 28 D ALT 25 D Alkaline Phosphatase 113 D Total Protein 6.7 Albumin 3.1 L Urine Color Urine Appearance Urine pH Ur Specific [place] Urine Protein Urine Glucose (UA) Urine Ketones Urine Blood Urine Nitrite Urine Bilirubin Urine Urobilinogen Ur Leukocyte Esterase RPR Titer Nonreactive Hepatitis C Antibody HIV 1&2 Antibody Screen Negative HIV P24 Antigen Negative LABS NOTED. - Treatment Hospital Course: Detox Protocol Followed, Detoxed Safely, Responded well, Discharged Condition Good Patient has Accepted a Rehab Referral to: PT GOING HOME, ADVISED TO CONSIDER LOCAL 12-STEP/NA/AA SUPPORT GROUPS. - Medication Discharge Medications: Ambulatory Orders Tamsulosin HCl [Flomax] 1 cap PO DAILY 02/09/17 - Diagnosis (1) Alcohol dependence with uncomplicated withdrawal Status: Acute (2) Cocaine dependence, uncomplicated Status: Chronic (3) Depression (emotion) Status: Chronic Qualifiers: Depression Type: dysthymia Qualified Code(s): F34.1 - Dysthymic disorder (4) GERD (gastroesophageal reflux disease) Status: Chronic Qualifiers: Esophagitis presence: esophagitis presence not specified Qualified Code(s) : K21.9 - Gastro-esophageal reflux disease without esophagitis (5) Hypertension Status: Chronic Qualifiers: Hypertension type: essential hypertension Qualified Code(s): I10 - Essential (primary) hypertension (6) Nicotine dependence Status: Chronic Qualifiers: Nicotine product type: cigarettes Substance use status: in withdrawal Qualified Code(s): F17.213 - Nicotine dependence, cigarettes, with withdrawal (7) BPH (benign prostatic hyperplasia) Status: Chronic - AMA Did Patient Leave Against Medical Advice: No
== END 2017-11-01 08:30 | disposition home or self-care (01) | DRG 774 ==
LOC: YASAS 17:56 → Y3N 21:53
PROVIDERS: ADMIT Internal Medicine; ATTEND Internal Medicine
PROC: HZ2ZZZZ Detoxification Services for Substance Abuse Treatment (ICD-10-PCS; principal; 2017-10-27)
DX: F10.230 Alcohol dependence with withdrawal, uncomplicated (principal); F14.20 Cocaine dependence, uncomplicated; F17.213 Nicotine dependence, cigarettes, with withdrawal; F34.1 Dysthymic disorder; I10 Essential (primary) hypertension; K21.9 Gastro-esophageal reflux disease without esophagitis; N40.0 Benign prostatic hyperplasia without lower urinary tract symptoms
CPT/HCPCS: 36415; 80053; 81003; 85027; 86593; 86803; 87389; 93005; 93010

== ENCOUNTER 2018-01-06 14:32 | Inpatient (IN) | payer OTHER ==
--- NOTE | 2018-01-06 11:52 | HP ---
[facility] Re[facility] Assess/Revision - Admission History Admitted to Rehab from: [facility] Date of Admission to Rehab: 01/06/2018 - Vital signs Vital Signs: NOTED; STABLE. - Findings Detox History & Physical reviewed: Yes Concur with findings: Yes Comments/Additional Findings: PATIENT'S MEDICAL / MEDICATION HISTORY REVIEWED PRIOR TO DISCHARGE FROM DETOX UNIT. PATIENT WAS DISCHARGED FROM DETOX UNIT TO BE TAKEN TO REHAB UNIT IN STABLE MEDICAL CONDITION. Inpatient Rehab Admission - Initial Determination Are CD services needed?: Yes Free of communicable disease: Yes Not in need of hospitalization: Yes - Rehab Admission Criteria Previous failed treatment: Yes Comorbidities: Yes Patient is meeting Inpatient Rehab admission criteria:: Yes
[~2018-01-06 14:32] MED LIST: ACETAMINOPHEN 325 MG TABLET (FP) PO PRN; IBUPROFEN 400 MG TABLET (FP) PO PRN; LOPERAMIDE HCL 2 MG CAPSULE PO PRN; MAG HYDROX/AL HYDROX/SIMETH 30 ML UNIT-DOSE CUP PO PRN; MAGNESIUM CITRATE 300 ML BOTTLE PO PRN; MAGNESIUM HYDROX 2400MG/30ML ORAL SUSPENSION 30 ML CUP PO PRN; MENTHOL/PHENOL 1 EACH UD MM PRN; NICOTINE POLACRILEX 2 MG GUM BUC PRN; P-EPHED 60MG/TRIPROLIDI 2.5MG TABLET PO PRN; guaiFENesin/D-METHORPHAN HB 10 ML UNIT-DOSE CUPS PO PRN
[2018-01-06] MEDS: SUVOREXANT 10 MG TABLET PO PRN (21:25)
[2018-01-06] MEDS: THIAMINE HCL 100 MG TABLET (FP) PO SCH (21:25)
[2018-01-07] MEDS: TAMSULOSIN HCL 0.4 MG CAP.ER.24H (FP) PO SCH (09:30)
[2018-01-07] MEDS: PRENATAL VITAMINS W/ FOLIC ACID TABLET (FP) PO SCH (09:54)
[2018-01-07] MEDS: NICOTINE 14 MG/24 HOURS TOPICAL PATCH TD SCH (09:54)
[2018-01-07] MEDS: SUVOREXANT 10 MG TABLET PO PRN (21:29)
[2018-01-07] MEDS: THIAMINE HCL 100 MG TABLET (FP) PO SCH (21:29)
[2018-01-08] MEDS: TAMSULOSIN HCL 0.4 MG CAP.ER.24H (FP) PO SCH (08:56)
[2018-01-08] MEDS: PRENATAL VITAMINS W/ FOLIC ACID TABLET (FP) PO SCH (09:56)
[2018-01-08] MEDS: NICOTINE 14 MG/24 HOURS TOPICAL PATCH TD SCH (09:57)
[2018-01-08] MEDS: THIAMINE HCL 100 MG TABLET (FP) PO SCH (21:10)
[2018-01-08] MEDS: SUVOREXANT 10 MG TABLET PO PRN (21:10)
--- NOTE | 2018-01-09 06:54 | HP ---
Psychiatrist Admission - Data Date of interview: 01/09/18 Admission source: 3N Identifying data: This is the first [facility] admission for this 62 years old single Black male, father of a 35 years old daughter, employed seasonally as a cook, domiciled Medical History: Significant for hypertension, GERD and BPH (benign prostatic hypertrophy). Smokes 5 cigarettes daily Psychiatric History: Denies history of previous psychiatric treatment Physical/Sexual Abuse/Trauma History: Denies history of emotional, physical or sexual abuse as well as DV relationship. No service Additional Comment: Reports history of multiple previous arrests including 3 felony convictions. Denies being on parole/probation at present Vital Signs: Vital Signs - 24 hr 01/09/18 01/09/18 00:30 03:30 Respiratory 18 18 Rate Allergies/Adverse Reactions: Allergies Allergy/AdvReac Type Severity Reaction Status Date / Time Iodine and Iodide Containing Allergy Severe Swelling Verified 01/06/18 14:50 Produc shrimp Allergy Severe Swelling Verified 01/06/18 14:50 Date of last physical exam: 01/03/18 Concur with the findings of this exam: Yes - Substance Abuse/Tx History Hx Alcohol Use: Yes Hx Substance Use: Yes Substance Use Type: Alcohol (Started drinking alcohol at age 15, consumes half a pint of vodka &a 6pk of beer daily. Last drank on 01/03/18), Cocaine (Started smoking crack cocaine at age 15, consumes $100 worth daily. Last smoked on ) Hx Substance Use Treatment: Yes (4-5 previous inpr detox & 1-2 inpt rehab) Mental Status Exam - Mental Status Exam Alert and Oriented to: Time, Place, Person Cognitive Function: Fair Patient Appearance: Well Groomed Mood: Depressed Affect: Appropriate Patient Behavior: Cooperative Speech Pattern: Clear Voice Loudness: Normal Thought Process: Intact, Goal Oriented Thought Disorder: Not Present Hallucinations: Denies Suicidal Ideation: Denies Homicidal Ideation: Denies Insight/Judgement: Fair Sleep: Poorly Appetite: Good Muscle strength/Tone: Normal Gait/Station: Normal Psychiatric Findings - Problem List ([place] 1, 2,3) (1) Alcohol dependence Current Visit: Yes Status: Acute (2) Cocaine dependence Current Visit: Yes Status: Acute (3) Nicotine dependence Current Visit: No Status: Acute Qualifiers: Nicotine product type: cigarettes Substance use status: in withdrawal Qualified Code(s): F17.213 - Nicotine dependence, cigarettes, with withdrawal (4) Substance-induced sleep disorder Current Visit: Yes Status: Acute (5) BPH (benign prostatic hyperplasia) Current Visit: No Status: Chronic (6) GERD (gastroesophageal reflux disease) Current Visit: No Status: Chronic Qualifiers: Esophagitis presence: esophagitis presence not specified Qualified Code(s) : K21.9 - Gastro-esophageal reflux disease without esophagitis (7) Hypertension Current Visit: No Status: Chronic Qualifiers: Hypertension type: essential hypertension Qualified Code(s): I10 - Essential (primary) hypertension - Initial Treatment Plan Initial Treatment Plan: 1) Start Belsomra 10 mg po HS prn for insomnisa. 2) Monitor progress
[2018-01-09] MEDS: TAMSULOSIN HCL 0.4 MG CAP.ER.24H (FP) PO SCH (09:30)
[2018-01-09] MEDS: PRENATAL VITAMINS W/ FOLIC ACID TABLET (FP) PO SCH (10:07)
[2018-01-09] MEDS: NICOTINE 14 MG/24 HOURS TOPICAL PATCH TD SCH (10:07)
[2018-01-09] MEDS: SUVOREXANT 10 MG TABLET PO PRN (21:31)
[2018-01-09] MEDS: THIAMINE HCL 100 MG TABLET (FP) PO SCH (21:31)
[2018-01-10] MEDS: TAMSULOSIN HCL 0.4 MG CAP.ER.24H (FP) PO SCH (07:33)
[2018-01-10] MEDS: NICOTINE 14 MG/24 HOURS TOPICAL PATCH TD SCH (10:28)
[2018-01-10] MEDS: PRENATAL VITAMINS W/ FOLIC ACID TABLET (FP) PO SCH (10:33)
[2018-01-10] MEDS: THIAMINE HCL 100 MG TABLET (FP) PO SCH (21:10)
[2018-01-10] MEDS: SUVOREXANT 10 MG TABLET PO PRN (21:12)
[2018-01-11] MEDS: TAMSULOSIN HCL 0.4 MG CAP.ER.24H (FP) PO SCH (09:30)
[2018-01-11] MEDS: PRENATAL VITAMINS W/ FOLIC ACID TABLET (FP) PO SCH (09:33)
[2018-01-11] MEDS: NICOTINE 14 MG/24 HOURS TOPICAL PATCH TD SCH (09:33)
[2018-01-11] MEDS: THIAMINE HCL 100 MG TABLET (FP) PO SCH (21:03)
[2018-01-11] MEDS: SUVOREXANT 10 MG TABLET PO PRN (21:03)
[2018-01-12 06:54] VITALS: BP 145/87; PULSE 73; TEMP 97.4
[2018-01-12] MEDS: PRENATAL VITAMINS W/ FOLIC ACID TABLET (FP) PO SCH (09:08)
[2018-01-12] MEDS: TAMSULOSIN HCL 0.4 MG CAP.ER.24H (FP) PO SCH (09:08)
[2018-01-12] MEDS: NICOTINE 14 MG/24 HOURS TOPICAL PATCH TD SCH (09:08)
--- NOTE | 2018-01-12 11:15 | PN ---
S Progress Note Note: Told by nursing staff about patient's decision to leave without completing this program. According to staff, he was determined to leave despite encouragement to stay and complete this program. He was stable on discharge.
== END 2018-01-12 09:28 | disposition left against medical advice (07) | DRG 770 ==
LOC: YASAS 14:32 → Y3W 14:34
PROVIDERS: ADMIT Psychiatry & Neurology Psychiatry; ATTEND Psychiatry & Neurology Psychiatry
PROC: HZ42ZZZ Group Counseling for Substance Abuse Treatment, Cognitive-Behavioral (ICD-10-PCS; principal; 2018-01-06)
DX: F10.20 Alcohol dependence, uncomplicated (principal); F14.20 Cocaine dependence, uncomplicated; F17.213 Nicotine dependence, cigarettes, with withdrawal; F19.282 Other psychoactive substance dependence with psychoactive substance-induced sleep disorder; I10 Essential (primary) hypertension; N40.0 Benign prostatic hyperplasia without lower urinary tract symptoms; K21.9 Gastro-esophageal reflux disease without esophagitis

== ENCOUNTER 2018-02-05 18:56 | Inpatient (IN) | payer OTHER ==
--- NOTE | 2018-02-05 20:42 | HP ---
CIWA Score - CIWA Score Nausea/Vomitin-Mild Nausea/No Vomiting Muscle Tremors: 4-Moderate,w/Arms Extend Anxiety: 4-Mod. Anxious/Guarded Agitation: 1-Slight > Activity Paroxysmal Sweats: 1-Minimal Palms Moist Orientation: 1-Uncertain about Date Tacttile Disturbances: 0-None Auditory Disturbances: 0-None Visual Disturbances: 0-None Headache: 3-Moderate CIWA-Ar Total Score: 15 Admission ROS S - HPI Chief Complaint: Alcohol withdrawal symptoms Allergies/Adverse Reactions: Allergies Allergy/AdvReac Type Severity Reaction Status Date / Time Iodine and Iodide Containing Allergy Severe Swelling Verified 02/05/18 22:42 Produc shrimp Allergy Severe Swelling Verified 02/05/18 22:42 History of Present Illness: 62 years old male with a long history of alcohol and crack cocaine dependence is seeking admission to detox. Patient has been in previous detox, last admitted to [facility] from 01/03/2018 - 01/12/2018 for detox and rehab but left prior to completing rehab. He reports insignificant period of sobriety. He has past medical history of HTN, GERD, BPH, nicotine dependence and depression. His only prescribed medication is Flomax for BPH. He denies suicide attempt and suicidal ideation at this time. Exam Limitations: No Limitations - Ebola screening Have you traveled outside of the country in the last 21 days: No Have you had contact with anyone from an Ebola affected area: No Have you been sick,other than usual withdrawal symptoms: No Do you have a fever: No - Review of Systems Constitutional: Chills, Loss of Appetite, Malaise, Night Sweats, Changes in sleep EENT: reports: Nose Congestion, Other (uses prescription glasses) Respiratory: reports: No Symptoms reported Cardiac: reports: No Symptoms Reported GI: reports: Nausea, Poor Fluid Intake, Abdominal cramping : reports: No Symptoms Reported Musculoskeletal: reports: Back Pain (lower), Muscle Pain Integumentary: reports: Dryness, Flushing Neuro: reports: Tingling, Tremors Endocrine: reports: No Symptoms Reported Hematology: reports: No Symptoms Reported Psychiatric: reports: Orientated x3, Anxious, Depressed Other Systems: Reviewed and Negative Patient History - Patient Medical History Hx Anemia: No Hx Asthma: No Hx Chronic Obstructive Pulmonary Disease (COPD): No Hx Cancer: No Hx Cardiac Disorders: No Hx Congestive Heart Failure: No Hx Hypertension: Yes (Not on medication) Hx Hypercholesterolemia: No Hx Pacemaker: No HX Cerebrovascular Accident: No Hx Seizures: No Hx Dementia: No Hx Diabetes: No Hx Gastrointestinal Disorders: Yes (GERD - Not on medication) Hx Liver Disease: No Hx Genitourinary Disorders: Yes (BPH - On FLOMAX) Hx Sexually Transmitted Disorders: No Hx Renal Disease (ESRD): No Hx Thyroid Disease: No Hx Human Immunodeficiency Virus (HIV): No (Negative 2017) Hx Hepatitis C: No Hx Depression: Yes (Not on medication) Hx Suicide Attempt: No (Denies suicidal ideation) Hx Bipolar Disorder: No Hx Schizophrenia: No - Patient Surgical History Past Surgical History: No Hx Neurologic Surgery: No Hx Cataract Extraction: No Hx Cardiac Surgery: No Hx Lung Surgery: No Hx Abdominal Surgery: No Hx Appendectomy: No Hx Cholecystectomy: No Hx Genitourinary Surgery: No Hx Orthopedic Surgery: No Anesthesia Reaction: No - PPD History Previous Implant?: Yes Documented Results: Negative w/proof Implanted On Prior R Admission?: Yes Date: 02/11/17 Results: 0 mm PPD to be Administered?: Yes - Reproductive History Patient is a Female of Child Bearing Age (11 -55 yrs old): No (MALE) - Smoking Cessation Smoking history: Current every day smoker Have you smoked in the past 12 months: Yes Aproximately how many cigarettes per day: 5 Cigars Per Day: 0 Hx Chewing Tobacco Use: No Initiated information on smoking cessation: Yes 'Breaking Loose' booklet given: 02/05/18 - Substances Abused Alcohol Route: Oral Frequency: Daily Amount used: 6 PACK BEER Age of first use: 15 Date of Last Use: 02/05/18 Family Disease History - Family Disease History Family Disease History: CA: Father (LUNG CA-) Admission Physical Exam [facility] - Physical General Appearance: Yes: Moderate Distress HEENTM: Yes: EOMI, Normal ENT Inspection, Normal Voice, AMPARO Respiratory: Yes: Lungs Clear, Normal Breath Sounds, No Respiratory Distress Neck: Yes: Supple Breast: Yes: Breast Exam Deferred Cardiology: Yes: Regular Rhythm, Regular Rate, S1, S2 Abdominal: Yes: Normal Bowel Sounds, Soft Genitourinary: Yes: Within Normal Limits Back: Yes: Normal Inspection Musculoskeletal: Yes: Back pain Extremities: Yes: Tremors Neurological: Yes: Alert, Normal Mood/Affect Integumentary: Yes: Dry Lymphatic: Yes: Within Normal Limits - Diagnostic (1) Alcohol dependence with uncomplicated withdrawal Current Visit: No Status: Chronic (2) Cocaine dependence, uncomplicated Current Visit: No Status: Chronic (3) Nicotine dependence Current Visit: No Status: Chronic Qualifiers: Nicotine product type: cigarettes Substance use status: in withdrawal Qualified Code(s): F17.213 - Nicotine dependence, cigarettes, with withdrawal (4) BPH (benign prostatic hyperplasia) Current Visit: No Status: Chronic (5) Depression (emotion) Current Visit: No Status: Chronic Qualifiers: Depression Type: dysthymia Qualified Code(s): F34.1 - Dysthymic disorder (6) GERD (gastroesophageal reflux disease) Current Visit: No Status: Chronic Qualifiers: Esophagitis presence: esophagitis presence not specified Qualified Code(s) : K21.9 - Gastro-esophageal reflux disease without esophagitis (7) Hypertension Current Visit: No Status: Chronic Qualifiers: Hypertension type: essential hypertension Qualified Code(s): I10 - Essential (primary) hypertension Cleared for Admission [facility] - Detox or Rehab S Level of Care: Medically Managed Detox Regimen/Protocol: Librium [facility] Breath Alcohol Content Breath Alcohol Content: 0.027 Vital Signs - Vital Signs Vital Signs Refused: No Temperature: 96.5 F Temperature Source: Oral Pulse Rate: 66 Respiratory Rate: 19 Blood Pressure: 151/85 BP Location: Left Arm Blood Pressure Position: Sitting - Height Height: 5 ft 5 in - Weight Weight: 153 lb Weight Measurement Method: Standing Scale Body Mass Index (BMI): 25.4 - Bowel Function Bowel Movement: No Urine Drug Screen - Test Device Lot Number: [id number] Expiration Date: 12/07/19 - Control Is Test Valid: Yes - Results Drug Screen Negative: No Urine Drug Screen Results: FELIPE-Cocaine, BZO-Benzodiazepines
[2018-02-05 21:00] VITALS: BMI 25.4
[2018-02-05] MEDS ORDERED: MAG HYDROX/AL HYDROX/SIMETH 30 ML UNIT-DOSE CUP PO PRN (21:14)
[2018-02-05] MEDS ORDERED: NICOTINE POLACRILEX 2 MG GUM BC PRN (21:14)
[2018-02-05] MEDS ORDERED: LOPERAMIDE HCL 2 MG CAPSULE PO PRN (21:14)
[2018-02-05] MEDS ORDERED: P-EPHED 60MG/TRIPROLIDI 2.5MG TABLET PO PRN (21:14)
[2018-02-05] MEDS ORDERED: IBUPROFEN 400 MG TABLET (FP) PO PRN (21:14)
[2018-02-05] MEDS ORDERED: MAGNESIUM HYDROX 2400MG/30ML ORAL SUSPENSION 30 ML CUP PO PRN (21:14)
[2018-02-05] MEDS ORDERED: guaiFENesin/D-METHORPHAN HB 10 ML UNIT-DOSE CUPS PO PRN (21:14)
[2018-02-05] MEDS ORDERED: MAGNESIUM CITRATE 300 ML BOTTLE PO PRN (21:14)
[2018-02-05] MEDS ORDERED: MENTHOL/PHENOL 1 EACH UD MM PRN (21:14)
[2018-02-05] MEDS ORDERED: chlordiazePOXIDE HCL 25 MG CAPSULE PO PRN (21:14)
[2018-02-05] MEDS ORDERED: ACETAMINOPHEN 325 MG TABLET (FP) PO PRN (21:14)
[2018-02-05] MEDS ORDERED: MELATONIN 5 MG TABLETS PO PRN (22:00)
[2018-02-05] MEDS: chlordiazePOXIDE HCL 25 MG CAPSULE PO SCH (23:30)
[2018-02-05] MEDS: THIAMINE HCL 100 MG TABLET (FP) PO SCH (23:30)
[2018-02-06] MEDS: chlordiazePOXIDE HCL 25 MG CAPSULE PO SCH ×4 (05:25→22:38)
[2018-02-06] MEDS: TAMSULOSIN HCL 0.4 MG CAP.ER.24H (FP) PO SCH (09:26)
[2018-02-06 09:57] LABS: HEMOGLOBIN 13.2 GM/dL (11.7-16.9); MCH 35.6 pg (25.7-33.7); MCHC 33.8 g/dl (32.0-35.9); MEAN CELL VOLUME 105.1 fl (80-96); MEAN PLT VOLUME 8.6 fl (7.5-11.1); PLATELET COUNT 140 K/MM3 (134-434); RBC 3.71 M/mm3 (4.00-5.60); RDW 11.6 % (11.9-15.9); WHITE BLOOD COUNT 4.8 K/mm3 (4.0-10.0)
[2018-02-06 09:58] LABS: URINE APPEARANCE CLEAR; URINE BILIRUBIN NEGATIVE (<2.0 mg/dL); URINE BLOOD NEGATIVE (NEGATIVE); URINE COLOR STRAW; URINE GLUCOSE (UA) NEGATIVE (NEGATIVE); URINE KETONE NEGATIVE (NEGATIVE); URINE LEUK ESTERASE NEGATIVE (NEGATIVE); URINE NITRITE NEGATIVE (NEGATIVE); URINE PROTEIN NEGATIVE (NEGATIVE); URINE UROBILINOGEN NEGATIVE mg/dL (0.2-1.0)
[2018-02-06] MEDS: NICOTINE 14 MG/24 HOURS TOPICAL PATCH TD SCH (10:26)
[2018-02-06] MEDS: PRENATAL VITAMINS W/ FOLIC ACID TABLET (FP) PO SCH (10:26)
[2018-02-06 10:31] LABS: CHLORIDE 107 mmol/L (98-107); POTASSIUM 3.7 mmol/L (3.5-5.1); SODIUM 141 mmol/L (136-145)
[2018-02-06 10:42] LABS: ALBUMIN 3.1 g/dl (3.4-5.0); ANION GAP 6 (8-16); BILIRUBIN,TOTAL 0.3 mg/dL (0.2-1.0); BLOOD UREA NITROGEN 19 mg/dL (7-18); CALCIUM 8.1 mg/dL (8.5-10.1); CO2 28 mmol/L (21-32); CREATININE 1.2 mg/dL (0.7-1.3); GLUCOSE,RANDOM 88 mg/dL (74-106); SGOT/AST 32 U/L (15-37); TOT PROT 6.7 g/dl (6.4-8.2)
[2018-02-06 11:08] LABS: ALK PHOS 89 U/L (45-117); SGPT/ALT 29 U/L (12-78)
--- NOTE | 2018-02-06 11:28 | EKG ---
Test Reason : Blood Pressure : / mmHG Vent. Rate : 076 BPM Atrial Rate : 076 BPM P-R Int : 144 ms QRS Dur : 088 ms QT Int : 392 ms P-R-T Axes : 064 -15 -01 degrees QTc Int : 441 ms NORMAL SINUS RHYTHM NONSPECIFIC T WAVE ABNORMALITY ABNORMAL ECG WHEN COMPARED WITH ECG OF 28-OCT-2017 12:12, T WAVE INVERSION LESS EVIDENT IN INFERIOR LEADS Confirmed by KOKO BENTLEY, RAH ([id number]) on 02/06/2018 11:27:55 AM Referred By: Gurwinder Marin Confirmed By:RAH SUTHERLAND MD
--- NOTE | 2018-02-06 12:54 | CONSULT ---
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 Substance Abuse History: Confirmed by patient in this interview.Details in current [facility] report : Smoking history: Current every day smoker. Have you smoked in the past 12 months: Yes. Aproximately how many cigarettes per day: 5. Cigars Per Day: 0. Hx Chewing Tobacco Use: No. Initiated information on smoking cessation: Yes. 'Breaking Loose' booklet given: 02/05/18. - Substances Abused. Alcohol. Route: Oral. Frequency: Daily. Amount used: 6 PACK BEER. Age of first use: 15. Date of Last Use: 02/05/18 Medical History: hypertension,GERD and BPH (benign prostatic hypertrophy). Psychiatric History: Patient denies history of psychiatric hospitalizations or suicide attempts.Has never been on psychotropic medications.No prior history of psychiatric OPD care. Physical/Sexual Abuse/Trauma History: Patient denies. Additional Comment: Urine Drug Screen Results: FELIPE-Cocaine, BZO- Benzodiazepines.Noted. Mental Status Exam - Mental Status Exam Alert and Oriented to: Time, Place, Person Cognitive Function: Good Patient Appearance: Well Groomed Mood: Nervous, Withdrawn Affect: Mood Congruent Patient Behavior: Fatigued, Cooperative Speech Pattern: Clear, Appropriate Voice Loudness: Normal Thought Process: Intact, Goal Oriented Thought Disorder: Not Present Hallucinations: Denies Suicidal Ideation: Denies Homicidal Ideation: Denies Insight/Judgement: Poor Sleep: Poorly, Difficulty falling asleep Appetite: Good Muscle strength/Tone: Normal Gait/Station: Normal Psychiatric Findings - Problem List ([place] 1, 2,3) (1) Alcohol dependence with uncomplicated withdrawal Current Visit: Yes Status: Acute (2) Cocaine dependence Current Visit: Yes Status: Acute (3) Nicotine dependence Current Visit: Yes Status: Acute Qualifiers: Nicotine product type: cigarettes Substance use status: in withdrawal Qualified Code(s): F17.213 - Nicotine dependence, cigarettes, with withdrawal (4) Insomnia Current Visit: Yes Status: Acute Qualifiers: Insomnia type: unspecified Qualified Code(s): G47.00 - Insomnia, unspecified - Initial Treatment Plan Initial Treatment Plan: Psychoeducation provided in this session.Sleep hygiene discussed.Detoxification in progress.Ambien 5 mg po hs prn.patient is informed of risk of sleep-walking.Mr Malik has expressed his agreement with this careplan.Observation.
--- NOTE | 2018-02-06 14:50 | PN ---
[facility] CIWA - CIWA Score Nausea/Vomitin-No Nausea/No Vomiting Muscle Tremors: 4-Moderate,w/Arms Extend Anxiety: 4-Mod. Anxious/Guarded Agitation: 2 Paroxysmal Sweats: 3 Orientation: 2-Disoriented Date<2 days Tacttile Disturbances: 2-Mild Itch/Numbness/Burn Auditory Disturbances: 2-Mild Harshness/Frighten Visual Disturbances: 0-None Headache: 0-None Present CIWA-Ar Total Score: 19 S Progress Note (SOAP) Subjective: Tremors, Sweating, Fatigue, Diarrhea. Objective: PATIENT A & O X 2 (UNCERTAIN ABOUT CURRENT DAY /DATE). PATIENT OBSERVED AMBULATING ON UNIT. NO ACUTE DISTRESS. 02/06/18 14:48 Vital Signs Temperature 96.8 F L 02/06/18 13:20 Pulse Rate 70 02/06/18 13:20 Respiratory Rate 18 02/06/18 13:20 Blood Pressure 162/87 02/06/18 13:20 O2 Sat by Pulse Oximetry (%) Laboratory Tests 02/06/18 02/06/18 02/06/18 07:45 07:45 07:45 WBC 4.8 RBC 3.71 L Hgb 13.2 D Hct 39.0 D MCV 105.1 H MCH 35.6 H MCHC 33.8 RDW 11.6 L Plt Count 140 D MPV 8.6 Sodium 141 Potassium 3.7 Chloride 107 Carbon Dioxide 28 Anion Gap 6 L BUN 19 H Creatinine 1.2 Creat Clearance w eGFR > 60 Random Glucose 88 D Calcium 8.1 L Total Bilirubin 0.3 D AST 32 D ALT 29 D Alkaline Phosphatase 89 D Total Protein 6.7 Albumin 3.1 L Urine Color Urine Appearance Urine pH Ur Specific [place] Urine Protein Urine Glucose (UA) Urine Ketones Urine Blood Urine Nitrite Urine Bilirubin Urine Urobilinogen Ur Leukocyte Esterase RPR Titer Nonreactive 02/06/18 07:45 WBC RBC Hgb Hct MCV MCH MCHC RDW Plt Count MPV Sodium Potassium Chloride Carbon Dioxide Anion Gap BUN Creatinine Creat Clearance w eGFR Random Glucose Calcium Total Bilirubin AST ALT Alkaline Phosphatase Total Protein Albumin Urine Color Straw Urine Appearance Clear Urine pH 5.0 Ur Specific [place] 1.014 Urine Protein Negative Urine Glucose (UA) Negative Urine Ketones Negative Urine Blood Negative Urine Nitrite Negative Urine Bilirubin Negative Urine Urobilinogen Negative Ur Leukocyte Esterase Negative RPR Titer LABS NOTED. Assessment: 02/06/18 14:48 WITHDRAWAL SYMPTOMS. HYPERTENSION. 02/06/18 14:52 Plan: CONTINUE DETOX. LISINOPRIL, 10 MG PO DAILY FOR ELEVATED BP. PRN IMMODIUM FOR DIARRHEA. INCREASE DAILY PO FLUID INTAKE.
[2018-02-06] MEDS: LISINOPRIL 10 MG TABLET (FP) PO SCH (15:55)
[2018-02-06] MEDS: ZOLPIDEM TARTRATE 5 MG TABLET PO PRN (22:38)
[2018-02-06] MEDS: THIAMINE HCL 100 MG TABLET (FP) PO SCH (22:38)
[2018-02-07] MEDS: chlordiazePOXIDE HCL 25 MG CAPSULE PO SCH ×3 (05:40→17:12)
[2018-02-07] MEDS: TAMSULOSIN HCL 0.4 MG CAP.ER.24H (FP) PO SCH (09:14)
[2018-02-07] MEDS: LISINOPRIL 10 MG TABLET (FP) PO SCH (10:13)
[2018-02-07] MEDS: NICOTINE 14 MG/24 HOURS TOPICAL PATCH TD SCH (10:14)
[2018-02-07] MEDS: PRENATAL VITAMINS W/ FOLIC ACID TABLET (FP) PO SCH (10:14)
--- NOTE | 2018-02-07 11:08 | PN ---
S CIWA - CIWA Score Nausea/Vomitin-No Nausea/No Vomiting Muscle Tremors: 4-Moderate,w/Arms Extend Anxiety: 4-Mod. Anxious/Guarded Agitation: 4-Moderately Restless Paroxysmal Sweats: 1-Minimal Palms Moist Orientation: 0-Oriented Tacttile Disturbances: 0-None Auditory Disturbances: 0-None Visual Disturbances: 0-None Headache: 0-None Present CIWA-Ar Total Score: 13 B[facility] Progress Note (SOAP) Subjective: SLIGHT TREMORS,ANXIETY, INTERMITTENT SLEEP Objective: 02/07/18 11:08 Vital Signs Temperature 96.3 F L 02/07/18 09:12 Pulse Rate 62 02/07/18 09:12 Respiratory Rate 18 02/07/18 09:12 Blood Pressure 121/63 02/07/18 09:12 O2 Sat by Pulse Oximetry (%) Laboratory Last Values WBC 4.8 K/mm3 (4.0-10.0) 02/06/18 07:45 RBC 3.71 M/mm3 (4.00-5.60) L 02/06/18 07:45 Hgb 13.2 GM/dL (11.7-16.9) D 02/06/18 07:45 Hct 39.0 % (35.4-49) D 02/06/18 07:45 MCV 105.1 fl (80-96) H 02/06/18 07:45 MCH 35.6 pg (25.7-33.7) H 02/06/18 07:45 MCHC 33.8 g/dl (32.0-35.9) 02/06/18 07:45 RDW 11.6 % (11.9-15.9) L 02/06/18 07:45 Plt Count 140 K/MM3 (134-434) D 02/06/18 07:45 MPV 8.6 fl (7.5-11.1) 02/06/18 07:45 Sodium 141 mmol/L (136-145) 02/06/18 07:45 Potassium 3.7 mmol/L (3.5-5.1) 02/06/18 07:45 Chloride 107 mmol/L (98-107) 02/06/18 07:45 Carbon Dioxide 28 mmol/L (21-32) 02/06/18 07:45 Anion Gap 6 (8-16) L 02/06/18 07:45 BUN 19 mg/dL (7-18) H 02/06/18 07:45 Creatinine 1.2 mg/dL (0.7-1.3) 02/06/18 07:45 Creat Clearance w eGFR > 60 (>60) 02/06/18 07:45 Random Glucose 88 mg/dL (74-106) D 02/06/18 07:45 Calcium 8.1 mg/dL (8.5-10.1) L 02/06/18 07:45 Total Bilirubin 0.3 mg/dL (0.2-1.0) D 02/06/18 07:45 AST 32 U/L (15-37) D 02/06/18 07:45 ALT 29 U/L (12-78) D 02/06/18 07:45 Alkaline Phosphatase 89 U/L (45-117) D 02/06/18 07:45 Total Protein 6.7 g/dl (6.4-8.2) 02/06/18 07:45 Albumin 3.1 g/dl (3.4-5.0) L 02/06/18 07:45 Urine Color Straw 02/06/18 07:45 Urine Appearance Clear 02/06/18 07:45 Urine pH 5.0 (5.0-8.0) 02/06/18 07:45 Ur Specific [place] 1.014 (1.001-1.035) 02/06/18 07:45 Urine Protein Negative (NEGATIVE) 02/06/18 07:45 Urine Glucose (UA) Negative (NEGATIVE) 02/06/18 07:45 Urine Ketones Negative (NEGATIVE) 02/06/18 07:45 Urine Blood Negative (NEGATIVE) 02/06/18 07:45 Urine Nitrite Negative (NEGATIVE) 02/06/18 07:45 Urine Bilirubin Negative (<2.0 mg/dL) 02/06/18 07:45 Urine Urobilinogen Negative mg/dL (0.2-1.0) 02/06/18 07:45 Ur Leukocyte Esterase Negative (NEGATIVE) 02/06/18 07:45 RPR Titer Nonreactive (NONREACTIVE) 02/06/18 07:45 Assessment: 02/07/18 11:08 WITHDRAWAL SX Plan: CONTINUE DETOX INCREASE PO FLUIDS.
[2018-02-07] MEDS: chlordiazePOXIDE 5 MG CAPSULE PO SCH (22:20)
[2018-02-07] MEDS: THIAMINE HCL 100 MG TABLET (FP) PO SCH (22:20)
[2018-02-07] MEDS: ZOLPIDEM TARTRATE 5 MG TABLET PO PRN (22:21)
[2018-02-08] MEDS: chlordiazePOXIDE 5 MG CAPSULE PO SCH ×3 (05:18→17:13)
[2018-02-08] MEDS: PRENATAL VITAMINS W/ FOLIC ACID TABLET (FP) PO SCH (10:17)
[2018-02-08] MEDS: TAMSULOSIN HCL 0.4 MG CAP.ER.24H (FP) PO SCH (10:18)
[2018-02-08] MEDS: LISINOPRIL 10 MG TABLET (FP) PO SCH (10:18)
[2018-02-08] MEDS: NICOTINE 14 MG/24 HOURS TOPICAL PATCH TD SCH (10:18)
--- NOTE | 2018-02-08 11:09 | PN ---
S Progress Note (SOAP) Subjective: DECREASED ANXIETY,SWEATS. ALERT O X 3. OOB AMBULATING WITH STEADY GAIT. Objective: 02/08/18 11:08 Vital Signs Temperature 98.1 F 02/08/18 09:26 Pulse Rate 78 02/08/18 09:26 Respiratory Rate 18 02/08/18 09:26 Blood Pressure 126/67 02/08/18 09:26 O2 Sat by Pulse Oximetry (%) Laboratory Last Values WBC 4.8 K/mm3 (4.0-10.0) 02/06/18 07:45 RBC 3.71 M/mm3 (4.00-5.60) L 02/06/18 07:45 Hgb 13.2 GM/dL (11.7-16.9) D 02/06/18 07:45 Hct 39.0 % (35.4-49) D 02/06/18 07:45 MCV 105.1 fl (80-96) H 02/06/18 07:45 MCH 35.6 pg (25.7-33.7) H 02/06/18 07:45 MCHC 33.8 g/dl (32.0-35.9) 02/06/18 07:45 RDW 11.6 % (11.9-15.9) L 02/06/18 07:45 Plt Count 140 K/MM3 (134-434) D 02/06/18 07:45 MPV 8.6 fl (7.5-11.1) 02/06/18 07:45 Sodium 141 mmol/L (136-145) 02/06/18 07:45 Potassium 3.7 mmol/L (3.5-5.1) 02/06/18 07:45 Chloride 107 mmol/L (98-107) 02/06/18 07:45 Carbon Dioxide 28 mmol/L (21-32) 02/06/18 07:45 Anion Gap 6 (8-16) L 02/06/18 07:45 BUN 19 mg/dL (7-18) H 02/06/18 07:45 Creatinine 1.2 mg/dL (0.7-1.3) 02/06/18 07:45 Creat Clearance w eGFR > 60 (>60) 02/06/18 07:45 Random Glucose 88 mg/dL (74-106) D 02/06/18 07:45 Calcium 8.1 mg/dL (8.5-10.1) L 02/06/18 07:45 Total Bilirubin 0.3 mg/dL (0.2-1.0) D 02/06/18 07:45 AST 32 U/L (15-37) D 02/06/18 07:45 ALT 29 U/L (12-78) D 02/06/18 07:45 Alkaline Phosphatase 89 U/L (45-117) D 02/06/18 07:45 Total Protein 6.7 g/dl (6.4-8.2) 02/06/18 07:45 Albumin 3.1 g/dl (3.4-5.0) L 02/06/18 07:45 Urine Color Straw 02/06/18 07:45 Urine Appearance Clear 02/06/18 07:45 Urine pH 5.0 (5.0-8.0) 02/06/18 07:45 Ur Specific [place] 1.014 (1.001-1.035) 02/06/18 07:45 Urine Protein Negative (NEGATIVE) 02/06/18 07:45 Urine Glucose (UA) Negative (NEGATIVE) 02/06/18 07:45 Urine Ketones Negative (NEGATIVE) 02/06/18 07:45 Urine Blood Negative (NEGATIVE) 02/06/18 07:45 Urine Nitrite Negative (NEGATIVE) 02/06/18 07:45 Urine Bilirubin Negative (<2.0 mg/dL) 02/06/18 07:45 Urine Urobilinogen Negative mg/dL (0.2-1.0) 02/06/18 07:45 Ur Leukocyte Esterase Negative (NEGATIVE) 02/06/18 07:45 RPR Titer Nonreactive (NONREACTIVE) 02/06/18 07:45 Assessment: 02/08/18 11:09 WITHDRAWAL SX Plan: CONTINUE DETOX
[2018-02-08] MEDS: THIAMINE HCL 100 MG TABLET (FP) PO SCH (22:12)
[2018-02-08] MEDS: ZOLPIDEM TARTRATE 5 MG TABLET PO PRN (22:12)
[2018-02-08] MEDS: chlordiazePOXIDE HCL 10 MG CAPSULE PO SCH (22:12)
[2018-02-09] MEDS: chlordiazePOXIDE HCL 10 MG CAPSULE PO SCH (05:15)
[2018-02-09 06:15] VITALS: BP 107/62; PULSE 70; TEMP 97.1
--- NOTE | 2018-02-09 18:03 | PN ---
[facility] Progress Note (SOAP) Subjective: Patient denies current Detox symptoms and reports that he feels well overall. Objective: PATIENT A & O X 3, OBSERVED AMBULATING ON UNIT. NO ACUTE DISTRESS. 02/09/18 18:02 Vital Signs Temperature 97.1 F L 02/09/18 06:15 Pulse Rate 70 02/09/18 06:15 Respiratory Rate 18 02/09/18 06:15 Blood Pressure 107/62 02/09/18 06:15 O2 Sat by Pulse Oximetry (%) Laboratory Tests 02/06/18 02/06/18 02/06/18 07:45 07:45 07:45 WBC 4.8 RBC 3.71 L Hgb 13.2 D Hct 39.0 D MCV 105.1 H MCH 35.6 H MCHC 33.8 RDW 11.6 L Plt Count 140 D MPV 8.6 Sodium 141 Potassium 3.7 Chloride 107 Carbon Dioxide 28 Anion Gap 6 L BUN 19 H Creatinine 1.2 Creat Clearance w eGFR > 60 Random Glucose 88 D Calcium 8.1 L Total Bilirubin 0.3 D AST 32 D ALT 29 D Alkaline Phosphatase 89 D Total Protein 6.7 Albumin 3.1 L Urine Color Urine Appearance Urine pH Ur Specific [place] Urine Protein Urine Glucose (UA) Urine Ketones Urine Blood Urine Nitrite Urine Bilirubin Urine Urobilinogen Ur Leukocyte Esterase RPR Titer Nonreactive 02/06/18 07:45 WBC RBC Hgb Hct MCV MCH MCHC RDW Plt Count MPV Sodium Potassium Chloride Carbon Dioxide Anion Gap BUN Creatinine Creat Clearance w eGFR Random Glucose Calcium Total Bilirubin AST ALT Alkaline Phosphatase Total Protein Albumin Urine Color Straw Urine Appearance Clear Urine pH 5.0 Ur Specific [place] 1.014 Urine Protein Negative Urine Glucose (UA) Negative Urine Ketones Negative Urine Blood Negative Urine Nitrite Negative Urine Bilirubin Negative Urine Urobilinogen Negative Ur Leukocyte Esterase Negative RPR Titer LABS NOTED. Assessment: 02/09/18 18:03 COMPLETION OF DETOX REGIMEN. Plan: PATIENT SCHEDULED FOR DISCHARGE FROM DETOX TODAY.
--- NOTE | 2018-02-09 18:07 | DS ---
[facility] Detox Discharge Summary Admission Date: 02/05/18 Discharge Date: 02/09/18 - History Present History: Alcohol Dependence Additional Comments: PATIENT GOING TO '[facility] ([place] FOR AFTERCARE. PATIENT WAS DISCHARGED FROM DETOX UNIT IN STABLE MEDICAL CONDITION. Pertinent Past History: HTN, GERD, BPH, Insomnia, Depression, Weight Loss, Nicotine Dependence. - Physical Exam Results Vital Signs: Vital Signs Temperature 97.1 F L 02/09/18 06:15 Pulse Rate 70 02/09/18 06:15 Respiratory Rate 18 02/09/18 06:15 Blood Pressure 107/62 02/09/18 06:15 O2 Sat by Pulse Oximetry (%) Pertinent Admission Physical Exam Findings: WITHDRAWAL SYMPTOMS. Laboratory Tests 02/06/18 02/06/18 02/06/18 07:45 07:45 07:45 WBC 4.8 RBC 3.71 L Hgb 13.2 D Hct 39.0 D MCV 105.1 H MCH 35.6 H MCHC 33.8 RDW 11.6 L Plt Count 140 D MPV 8.6 Sodium 141 Potassium 3.7 Chloride 107 Carbon Dioxide 28 Anion Gap 6 L BUN 19 H Creatinine 1.2 Creat Clearance w eGFR > 60 Random Glucose 88 D Calcium 8.1 L Total Bilirubin 0.3 D AST 32 D ALT 29 D Alkaline Phosphatase 89 D Total Protein 6.7 Albumin 3.1 L Urine Color Urine Appearance Urine pH Ur Specific [place] Urine Protein Urine Glucose (UA) Urine Ketones Urine Blood Urine Nitrite Urine Bilirubin Urine Urobilinogen Ur Leukocyte Esterase RPR Titer Nonreactive 02/06/18 07:45 WBC RBC Hgb Hct MCV MCH MCHC RDW Plt Count MPV Sodium Potassium Chloride Carbon Dioxide Anion Gap BUN Creatinine Creat Clearance w eGFR Random Glucose Calcium Total Bilirubin AST ALT Alkaline Phosphatase Total Protein Albumin Urine Color Straw Urine Appearance Clear Urine pH 5.0 Ur Specific [place] 1.014 Urine Protein Negative Urine Glucose (UA) Negative Urine Ketones Negative Urine Blood Negative Urine Nitrite Negative Urine Bilirubin Negative Urine Urobilinogen Negative Ur Leukocyte Esterase Negative RPR Titer LABS NOTED. - Treatment Hospital Course: Detox Protocol Followed, Detoxed Safely, Responded well, Discharged Condition Good Patient has Accepted a Rehab Referral to: [facility] ( [place] - Medication Discharge Medications: Ambulatory Orders Tamsulosin HCl [Flomax] 0.4 mg PO DAILY #30 [id number] 01/12/18 - Diagnosis (1) Alcohol dependence with uncomplicated withdrawal Status: Acute (2) Cocaine dependence Status: Acute Qualifiers: Substance use status: uncomplicated Qualified Code(s): F14.20 - Cocaine dependence, uncomplicated (3) Nicotine dependence Status: Acute Qualifiers: Nicotine product type: cigarettes Substance use status: in withdrawal Qualified Code(s): F17.213 - Nicotine dependence, cigarettes, with withdrawal (4) BPH (benign prostatic hyperplasia) Status: Chronic (5) Depression (emotion) Status: Chronic Qualifiers: Depression Type: dysthymia Qualified Code(s): F34.1 - Dysthymic disorder (6) GERD (gastroesophageal reflux disease) Status: Chronic Qualifiers: Esophagitis presence: esophagitis presence not specified Qualified Code(s) : K21.9 - Gastro-esophageal reflux disease without esophagitis (7) Hypertension Status: Chronic Qualifiers: Hypertension type: essential hypertension Qualified Code(s): I10 - Essential (primary) hypertension (8) Insomnia Status: Acute Qualifiers: Insomnia type: unspecified Qualified Code(s): G47.00 - Insomnia, unspecified (9) Substance-induced sleep disorder Status: Acute - AMA Did Patient Leave Against Medical Advice: No
== END 2018-02-09 06:50 | disposition home or self-care (01) | DRG 774 ==
LOC: YASAS 18:56 → Y3N 20:39
PROVIDERS: ADMIT Internal Medicine; ATTEND Internal Medicine
PROC: HZ2ZZZZ Detoxification Services for Substance Abuse Treatment (ICD-10-PCS; principal; 2018-02-05)
DX: F10.230 Alcohol dependence with withdrawal, uncomplicated (principal); F14.20 Cocaine dependence, uncomplicated; F17.210 Nicotine dependence, cigarettes, uncomplicated; F19.282 Other psychoactive substance dependence with psychoactive substance-induced sleep disorder; F32.9 Major depressive disorder, single episode, unspecified; I10 Essential (primary) hypertension; N40.0 Benign prostatic hyperplasia without lower urinary tract symptoms; K21.9 Gastro-esophageal reflux disease without esophagitis
CPT/HCPCS: 36415; 80053; 81003; 85027; 86593; 93005; 93010